=== PATIENT | male | born 1935 | race Caucasian/White ===

== ENCOUNTER 2016-04-14 21:02 | Inpatient (IN) | payer OTHER ==
[~2016-04-14] VITALS: Ht 177.8 cm; Wt 76.2 kg
[~2016-04-14 21:02] MED LIST: ACET650T8 PO; FERR325T31 PO; HYDR-2666 PO; HYDR-2868 PO; MULT-246 PO; OMEP20TA PO; OXYB5TAB7 PO; SIMV20TA3 PO; TAMS0.4C2 PO
[2016-04-14] MEDS ORDERED: ONDANSETRON PF 4 MG/2 ML VIAL. IV ONE (21:30)
--- NOTE | 2016-04-14 21:47 | ED.ADGEN ---
Adult General Chief Complaint Chief Complaint: WEAKNESS/GENERALIZED HPI HPI Patient is a 80 year old man, history of hypercholesterol, hypertension, who presents the emergency department with complaint of cough, generalized weakness , and subjective fever that began today. [place] nauseous after becoming dizzy at home, no loss of consciousness, laid down on the floor, states he did not fall. Denies any chest pain, states cough is productive of white sputum over the past day or so. Patient also states that he had several episodes of loose stool today denies any diarrhea or bloody stools. Did receive his flu vaccination, denies any urinary complaints, abdominal pain, any any injuries, any similar symptoms previously. He was treated about a week ago with antibiotics for " sinus and cough". Mild rhinorrhea. Noted to be hypoxic in the ED, placed on 2 L nasal cannula, oxygen saturation in the mid 90s. Review of Systems Review of Systems Constitutional: Subjective fever, no chills. Eyes: Denies change in visual acuity. [] HENT: Denies nasal congestion or sore throat. [] Respiratory: Cough productive of white sputum, shortness of breath. No chest pain. Cardiovascular: Denies chest pain or edema. [] GI: Denies abdominal pain, complaining of nausea, vomiting, no diarrhea or bloody stools. : Denies dysuria. [] Musculoskeletal: Denies back pain or joint pain. [] Integument: Denies rash. [] Neurologic: Denies headache, focal weakness or sensory changes. [] Endocrine: Denies polyuria or polydipsia. [] Lymphatic: Denies swollen glands. [] Psychiatric: Denies depression or anxiety. [] Current Medications Current Medications Current Medications Medications (Trade) Dose Ordered Sig/Jef Start Time Stop Time Status Last Admin Dose Admin Ondansetron HCl (Zofran) 4 mg 1X ONCE 04/14/16 21:30 04/14/16 21:31 DC Oseltamivir Phosphate (Tamiflu) 75 mg 1X ONCE 04/15/16 00:00 04/15/16 00:01 Allergies Allergies Allergies Coded Allergies Type Severity Reaction Last Updated Verified iodine Allergy Intermediate 04/14/16 Yes Physical Exam Physical Exam Constitutional: Well developed, well nourished, no acute distress, mildly diaphoretic, skin warm to touch. [] HENT: Normocephalic, atraumatic, bilateral external ears normal, oropharynx moist, no oral exudates, nose normal. [] Eyes: PERRLA, EOMI, conjunctiva normal, no discharge. [] Neck: Normal range of motion, no tenderness, supple, no stridor. [] Cardiovascular:Heart rate regular rhythm, no murmur , S1, S2, no rubs or gallops. No chest wall tenderness or crepitus. [] Lungs & Thorax: Diminished breath sounds at bases bilaterally, nasal cannula in place. Abdomen: Bowel sounds normal, soft, no tenderness, no rebound, rigidity, no guarding, no masses, no pulsatile masses. [] Skin: Warm, dry, no erythema, no rash. [] Back: No tenderness, no CVA tenderness. [] Extremities: No tenderness, no cyanosis, no clubbing, ROM intact, no edema. Negative Homans sign. [] Neurologic: Alert and oriented X 3, normal motor function, normal sensory function, no focal deficits noted. [] Psychologic: Affect normal, judgement normal, mood normal. [] Current Patient Data Lab Values Laboratory Tests Test 04/14/16 21:10 04/14/16 22:05 04/14/16 22:10 04/14/16 22:39 Prothrombin Time 13.7SEC (11.7-14.0) Prothrombin Time INR 1.1 (0.8-1.1) PTT 39SEC (24-38) H White Blood Count 5.1x10^3/uL (4.0-11.0) Red Blood Count 4.52x10^6/uL (4.30-5.70) Hemoglobin 14.6g/dL (13.0-17.5) Hematocrit 42.7% (39.0-53.0) Mean Corpuscular Volume 95fL (79-100) Mean Corpuscular Hemoglobin 32pg (25-35) Mean Corpuscular Hemoglobin Concent 34g/dL (31-37) Red Cell Distribution Width 17.8% (11.5-14.5) H Platelet Count 145x10^3/uL (140-400) Neutrophils (%) (Auto) 87% (31-73) H Lymphocytes (%) (Auto) 6% (24-48) L Monocytes (%) (Auto) 7% (0-9) Eosinophils (%) (Auto) 0% (0-3) Basophils (%) (Auto) 0% (0-3) Neutrophils # (Auto) 4.4x10^3uL (1.8-7.7) Lymphocytes # (Auto) 0.3x10^3/uL (1.0-4.8) L Monocytes # (Auto) 0.3x10^3/uL (0.0-1.1) Eosinophils # (Auto) 0.0x10^3/uL (0.0-0.7) Basophils # (Auto) 0.0x10^3/uL (0.0-0.2) Sodium Level 139mmol/L (136-145) Potassium Level 4.1mmol/L (3.5-5.1) Chloride Level 103mmol/L (98-107) Carbon Dioxide Level 25mmol/L (21-32) Anion Gap 11 (6-14) Blood Urea Nitrogen 12mg/dL (8-26) Creatinine 0.8mg/dL (0.7-1.3) Estimated GFR (Cockcroft-Gault) 92.5 BUN/Creatinine Ratio 15 (6-20) Glucose Level 137mg/dL (70-99) H Lactic Acid Level 1.0mmol/L (0.4-2.0) Calcium Level 8.6mg/dL (8.5-10.1) Total Bilirubin 0.5mg/dL (0.2-1.0) Aspartate Amino Transferase (AST) 21U/L (15-37) Alanine Aminotransferase (ALT) 18U/L (16-63) Alkaline Phosphatase 75U/L (46-116) Troponin I Quantitative < 0.017ng/mL (0.000-0.055) Total Protein 7.8g/dL (6.4-8.2) Albumin 3.6g/dL (3.4-5.0) Albumin/Globulin Ratio 0.9 (1.0-1.7) L Lipase 99U/L (73-393) Ethyl Alcohol Level < 10mg/dL (0-10) Urine Collection Type Unknown Urine Color Yellow Urine Clarity Clear Urine pH 7.0 Urine Specific [place] 1.015 Urine Protein Negativemg/dL (NEG-TRACE) Urine Glucose (UA) Negativemg/dL (NEG) Urine Ketones (Stick) 15mg/dL (NEG) Urine Blood Negative (NEG) Urine Nitrite Negative (NEG) Urine Bilirubin Negative (NEG) Urine Urobilinogen Dipstick 0.2mg/dL (0.2 mg/dL) Urine Leukocyte Esterase Negative (NEG) Urine RBC Occ/HPF (0-2) Urine WBC Occ/HPF (0-4) Urine Squamous Epithelial Cells Few/LPF Urine Bacteria Few/HPF (0-FEW) Urine Opiates Screen Neg (NEG) Urine Methadone Screen Neg (NEG) Urine Barbiturates Neg (NEG) Urine Phencyclidine Screen Neg (NEG) Urine Amphetamine/Methamphetamine Neg (NEG) Urine Benzodiazepines Screen Neg (NEG) Urine Cocaine Screen Neg (NEG) Urine Cannabinoids Screen Neg (NEG) Urine Ethyl Alcohol Neg (NEG) Test 04/14/16 22:51 Influenza Type A Antigen Positive (NEGATIVE) A Influenza Type B Antigen Negative (NEGATIVE) Laboratory Tests 04/14/16 22:05 Laboratory Tests 04/14/16 22:05 EKG EKG EC: Sinus rhythm, heart rate 82 beats minute, left axis deviation, QTC of 409, GA 196, QRS of 88, contour normality is noted in the inferior leads, no ST elevations or depressions, abnormal ECG, does not meet STEMI criteria. Radiology/Procedures Radiology/Procedures Chest x-ray: One view: Patient with atelectasis noted at the bases bilaterally, no discrete infiltrates or effusions identified, no bony or soft tissue abnormalities. As interpreted by me. [] Course & Med Decision Making Course & Med Decision Making Pertinent Labs and Imaging studies reviewed. (See chart for details) Patient with mild hypoxia, mild tachycardia in the ED. Stable on 2 L nasal cannula, does not use oxygen at home. Cough 1 day, fever as stated. No leukocytosis noted, patient was positive for influenza type a, chest x-ray does not reveal any evidence of discrete infiltrates, atelectasis stated noted, no indication for antibiotics based on these findings, patient did receive Tamiflu in the ED. A studies otherwise not significantly concerning, patient also received IV fluids along with antipyretics in the ED. Findings as above discussed with Dr. Chen, on-call for the patient's primary care provider Dr. Farmer, patient accepted to his service as a full admission to the medical telemetry floor with supportive measures as stated, with bridge orders as requested. Patient remained stable, comfortable in the emergency department on 2 L nasal cannula, transfer to the floor without issue. Dragon Disclaimer Dragon Disclaimer This electronic medical record was generated, in whole or in part, using a voice recognition dictation system. Departure Impression: Primary Impression: Influenza A Additional Impression: Hypoxia Disposition: ADMITTED INPATIENT Admitting Physician: Eugene Chen Condition: IMPROVED Problem Qualifiers ANURAG PAUL DO Apr 14, 2016 21:47
[2016-04-14 22:20] LABS: BASO % 0 % (0-3); EOS % 0 % (0-3); HEMATOCRIT 42.7 % (39.0-53.0); HEMOGLOBIN 14.6 g/dL (13.0-17.5); LYMPH # 0.3 x10^3/uL (1.0-4.8); LYMPH % 6 % (24-48); MEAN CORPUSCULAR HEMOGLOBIN 32 pg (25-35); MEAN CORPUSCULAR HGB CONC 34 g/dL (31-37); MEAN CORPUSCULAR VOLUME 95 fL (79-100); MONO % 7 % (0-9); NEUT % 87 % (31-73); PLATELET COUNT 145 x10^3/uL (140-400); RED BLOOD COUNT 4.52 x10^6/uL (4.30-5.70); RED CELL DISTRIBUTION WIDTH 17.8 % (11.5-14.5); WHITE BLOOD COUNT 5.1 x10^3/uL (4.0-11.0)
[2016-04-14 22:38] LABS: INR 1.1 (0.8-1.1); PROTHROMBIN TIME PATIENT 13.7 SEC (11.7-14.0)
[2016-04-14 22:40] LABS: CALCIUM 8.6 mg/dL (8.5-10.1); CREATININE 0.8 mg/dL (0.7-1.3); GFR 92.5; POTASSIUM 4.1 mmol/L (3.5-5.1)
[2016-04-14 22:46] LABS: ALBUMIN 3.6 g/dL (3.4-5.0); ALBUMIN/GLOBULIN RATIO 0.9 (1.0-1.7); TOTAL BILIRUBIN 0.5 mg/dL (0.2-1.0); TOTAL PROTEIN 7.8 g/dL (6.4-8.2)
[2016-04-14 22:49] LABS: BILIRUBIN,URINE NEGATIVE (NEG); GLUCOSE,URINE NEGATIVE (NEG); NITRITE,URINE NEGATIVE (NEG); PROTEIN,URINE NEGATIVE (NEG-TRACE); UROBILINOGEN,URINE 0.2 mg/dL (0.2 mg/dL)
[2016-04-14 22:54] LABS: BARBITURATES NEG (NEG); BENZODIAZEPINES NEG (NEG); CANNABINOIDS NEG (NEG); COCAINE NEG (NEG); METHADONE NEG (NEG); OPIATES NEG (NEG); PHENCYCLIDINE NEG (NEG)
[2016-04-14 22:56] LABS: ETHANOL, URINE NEG (NEG)
[2016-04-14 23:18] LABS: BACTERIA,URINE FEW /HPF (0-FEW); RBC,URINE OCC /HPF (0-2); SQUAMOUS EPITHELIAL CELL,UR FEW /LPF; WBC,URINE OCC /HPF (0-4)
[2016-04-14 23:44] LABS: OBC FLU VALID
[2016-04-15] MEDS ORDERED: OSELTAMIVIR 75 MG CAPSULE PO ONE
[2016-04-15] MEDS ORDERED: ONDANSETRON PF 4 MG/2 ML VIAL. IV PRN (00:15)
[2016-04-15 00:27] LABS: PLT ESTIMATE ADEQUATE (ADEQUATE)
[2016-04-15 00:28] LABS: % BASOS 1 % (0-3)
[2016-04-15] MEDS: IV NORMAL SALINE 1000ML BAG 1,000 ML IV SCH ×3 (01:58→20:13)
--- NOTE | 2016-04-15 03:17 | ACF ---
Admission Forms Criteria GENERAL ADMISSION CRITERIA (Place 'X' for any and all applicable criteria): Admission is indicated for ANY ONE of the following: [ ]I. Hemodynamic instability as indicated by ANY ONE of the following(1)(2) (3)(4)(5): [ ]a) Vital sign abnormality not readily corrected by appropriate treatment within 12 to 24 hours indicated by ANY ONE of the following: [ ]i) Hypotension [ ]ii) Symptomatic Tachycardia unresponsive to treatment (eg , analgesia, fluids, sedation as indicated) [ ]iii) Orthostatic vital sign changes unresponsive to treatment (eg, fluids) [ ]b) Vital sign abnormality that is severe indicated by ANY ONE of the following: [ ]i) Inadequate perfusion indicated by ANY ONE of the following: [ ]1) Lactic acidosis (greater than 2 mmol/L) [ ]2) New abnormal capillary refill (greater than 3 seconds) [ ]3) Other metabolic acidosis (arterial pH less than 7.35) not otherwise explained [ ]4) Reduced urine output [ ]5) Altered mental status [ ]6) Myocardial Ischemia [ ]v) Mean arterial pressure[A] less than 60 mm Hg [ ]vi) Mean arterial pressure[A] less than 70 mm Hg after 30 minutes of appropriate treatment (eg, fluid resuscitation) [ ]vii) IV inotropic or vasopressor medication required to maintain adequate blood pressure or perfusion [ ]viii) Sustained heart rate greater than 120 beats per minute in adult or child 6 years or older[B]] [ ]II. Hypertension requiring inpatient treatment as indicated by ANY ONE of the following(6)(7)(8): [ ]a) SBP greater than 220 mm Hg or DBP greater than 120 mm Hg despite treatment [ ]b) SBP greater than 140 mm Hg or DBP greater than 100 mm Hg with evidence of acute end organ damage as indicated by ANY ONE of the following: [ ]i) Encephalopathy [ ]ii) Acute renal failure as indicated by new onset of ANY ONE of the following(9)(10)(11)(12)(13): [ ]1) A 3-fold rise in serum creatinine from baseline [ ]2) Serum creatinine greater than 4 mg/dL ( 354 micromoles/L) with acute rise greater than 0.5 mg/dL (44.2 micromoles/L) [ ]3) Reduction of more than 75% in estimated glomerular filtration rate from baseline [ ]4) Estimated glomerular filtration rate less than 35 mL/min/1.73m2 (0.59 mL/sec/1.73m2) in child up to 18 years of age [ ]5) Cessation of urine output indicated by ALL of the following: [ ]A. Adequate volume status [ ]B. Inadequate urine output as indicated by ANY ONE of the following: [ ]a. Urine output less than 0.3 mL/kg/hr for 24 hours [ ]b. Anuria (urine output less than 0.1 mL/kg/hr) for 12 hours [ ]iii) Aortic dissection [ ]iv) Myocardial ischemia [ ]v) Left ventricular heart failure [ ]vi) Retinal hemorrhage [ ]vii) Other significant finding [ ]c) Hypertension in child requiring inpatient treatment as indicated by ALL of the following(14)(15)(16): [ ]i) Outpatient treatment not effective, not available, or not appropriate [ ]ii) SBP or DBP greater than 95th percentile for age [ ]iii) Evidence of acute end organ damage as indicated by ANY ONE of the following: [ ]1) Altered mental status [ ]2) Acute renal failure as indicated by new onset of ANY ONE of the following(9)(10)(11)(12)(13): [ ]A. A 3-fold rise in serum creatinine from baseline [ ]B. Serum creatinine greater than 4 mg/dL (354 micromoles/L) with acute rise greater than 0.5 mg/dL (44.2 micromoles/L) [ ]C. Reduction of more than 75% in estimated glomerular filtration rate from baseline [ ]D. Estimated glomerular filtration rate less than 35 mL/min/1.73m2 (0.59 mL/sec/1.73m2)in child up to 18 years of age [ ]E. Cessation of urine output indicated by ALL of the following: [ ]a. Adequate volume status [ ]b. Inadequate urine output as indicated by ANY ONE of the following: [ ]1) Urine output less than 0.3 mL/kg/hr for 24 hours [ ]2) Anuria (urine output less than 0.1 mL/kg/hr) for 12 hours [ ]3) Severe headache [ ]4) Visual disturbance [ ]5) Retinal hemorrhage [ ]6) Other significant finding [ ]III. Acute cardiac or peripheral ischemia as indicated by ANY ONE of the following: [ ]a) Acute coronary syndrome(17)(18) [ ]b) Acute peripheral ischemia (eg, pulseless, cool, mottled, or cyanotic extremity)(19) [ ]IV. Cardiac arrhythmias or findings of immediate concern indicated by ANY ONE of the following(20)(21): [ ]a) Heart rhythms that are inherently dangerous or unstable indicated by ANY ONE of the following(22)(23)(24): [ ]i) Resuscitated ventricular fibrillation or cardiac arrest [ ]ii) Ventricular escape rhythm [ ]iii) Sustained ventricular tachycardia (30 seconds or more of ventricular rhythm at greater than 100 beats per minute) [ ]iv) Nonsustained ventricular tachycardia and ANY ONE of the following: [ ]1) Suspected cardiac ischemia as cause or consequence of ventricular tachycardia [ ]2) In setting of acute myocarditis [ ]b) Unstable cardiac conduction defects indicated by ANY ONE of the following(24)(25)(26): [ ]i) Type II second-degree atrioventricular block [ ]ii) Third-degree atrioventricular block [ ]iii) New-onset left bundle branch block with suspected myocardial ischemia [ ]c) Any heart rhythm and ANY ONE of the following(22)(23)(27)(28)( 29): [ ] i) Continuous long-term ECG monitoring needed (eg, initiation of drug requiring monitoring for more than 24 hours) [ ] ii) Patient has automatic implanted cardioverter defibrillator that is repeatedly firing, malfunctioning, or in need of immediate adjustment of settings beyond the scope of ambulatory or observation care. [ ]d) Heart rhythms of concern due to ANY ONE of the following: [ ]i) Hypotension [ ]ii) Respiratory distress [ ]iii) Association with other significant symptoms (eg, bradycardia with syncope or ongoing dizziness, supraventricular tachycardia with chest pain) (27)(28) (30) [ ] V. Severe heart failure as indicated by ANY ONE of the following ( 31)(32): [ ]a) Respiratory distress [ ]b) Hypotension [ ]c) Anasarca (refractory to outpatient therapy) [ ]d) Cardiac arrhythmias of immediate concern [ ]e) Myocardial ischemia [X]. Respiratory abnormalities, including ANY ONE of the following(33)(34) (35)(36): [ ]a) Respiratory rate greater than 30 breaths per minute unresponsive to treatment [A] [ ]b) New saturation of arterial oxygen less than 90% [ ]c) New partial pressure of carbon dioxide greater than 44 mm Hg ( 5.9 kPa) [X]d) Supplemental oxygen or respiratory treatments needed that are new or not performable at other levels of care [ ]e) New-onset cyanosis [ ]f) Inability to protect airway [ ]g) Chronic lung disease with severe deterioration (not responsive to emergency and observation care treatment as appropriate) as indicated by ANY ONE of the following(34)(36 ): [ ]i) SaO2 5% below baseline in patient with chronic hypoxemia [ ]ii) New requirement for supplemental oxygen to keep SaO2 at baseline or acceptable level [ ]iii) Required supplemental oxygen performable only in acute inpatient setting [ ]iv) Severe airflow or ventilation abnormalities [ ]v) Previously mobile patient unable to walk between rooms [ ]vi Inability to eat or sleep due to dyspnea [ ]vii) Rapid rate of exacerbation onset [ ]viii) Altered mental status ]VII. Severe airflow or ventilation abnormalities (not responsive to emergency and observation care treatment as appropriate) as indicated by ANY ONE of the following(33)(34)(35)(37): [ ]a) PCO2 greater than 42 mm Hg (5.6 kPa) and pH less than 7.35 (new ) [ ]b) Documented PCO2 increased more than 5 mm Hg (0.7 kPa) from disease baseline [ ]c) Airflow measurements [B] less than 60% of previous best or predicted (eg, peak expiratory flow rate less than 300 L/minute) despite intensive emergent treatment [C] [ ]d) Required respiratory treatments that are performable only in acute inpatient setting [ ]VIII. Impending or actual respiratory arrest ( Also use Respiratory Failure GRG for severe respiratory disease and long-term mechanical ventilation patients) [ ]IX. Neurologic abnormalities, including ANY ONE of the following: [ ]a) New findings that suggest ANY ONE of the following: [ ]i) VOICE PROFESSOR infection(38) [ ]ii) Cerebral bleeding, ischemia, or vasospasm(39)(40) [ ]iii) Increased intracranial pressure, hydrocephalus, or cerebral edema(41)(42)(43) [ ]iv) Spinal cord injury(44) [ ]b) Uncontrolled seizures(45) [ ]c) New-onset coma (eg, Olga coma scale score less than 9) or unexplained abnormal mental status (eg, Olga coma scale score less than 14) [D](41)(46)(47) [ ]X. New-onset severe neurologic findings requiring inpatient care; examples include(42)(48)(49): [ ]a) Papilledema [ ]b) Cerebral edema [ ]c) Mass effect on CT scan [ ]XI. Suspected acute intra-abdominal process with peritoneal signs, abdominal mass, or similar findings (50)(51)(52) [ ]XII. Severe physiologic disorder remaining after emergency or observation level care (as appropriate) as indicated by ANY ONE of the following (53): [ ]a) Significant dehydration [ ]b) Diabetic ketoacidosis [ ]c) Hyperglycemic hyperosmolar state (eg, osmolality greater than 320 mOsm/kg (mmol/kg) [ ]d) Hypoglycemia [ ]e) Other (new) acid-base disorder with pH less than 7.35 or greater than 7.5(54) [ ]f) Thyroid storm (55) [ ]g) Myxedema coma (55) [ ]XIII. Abdominal abnormalities with ANY ONE of the following(56)(57): [ ]a) Absent bowel sounds with complete ileus [ ]b) Signs of intestinal obstruction or peritonitis [E] [ ]c) Nausea and vomiting that cannot be controlled with outpatient or observation care [ ]XIV. Acute renal failure as indicated by new onset of ANY ONE of the following(9)(10)(11)(12)(13): [ ]a) A 3-fold rise in serum creatinine from baseline [ ]b) Serum creatinine greater than 4 mg/dL (354 micromoles/L) with acute rise greater than 0.5 mg/dL (44.2 micromoles/L) [ ]c) Reduction of more than 75% in estimated glomerular filtration rate from baseline [ ]d) Estimated glomerular filtration rate less than 35 mL/min/ 1.73m2 (0.59 mL/sec/1.73m2) in child up to 18 years of age [ ]e) Cessation of urine output indicated by ALL of the following: [ ]i) Adequate volume status [ ]ii) Inadequate urine output as indicated by ANY ONE of the following: [ ]1) Urine output less than 0.3 mL/kg/hr for 24 hours [ ]2) Anuria (urine output less than 0.1 mL/kg/hr) for 12 hours [ ]XV. Significant uremic complications as indicated by ANY ONE of the following(58)(59)(60): [ ]a) Outpatient therapy is ineffective or not feasible for ANY ONE of the following: [ ]i) Severe heart failure [ ]ii) Severehypertension [ ]iii) Pleural effusion [ ]iv) Pericarditis or pericardial effusion [ ]b) Cardiac arrhythmias of immediate concern [ ]c) Intractable nausea or vomiting [ ]d) Recurrent seizures [ ]e) Encephalopathy [ ]f) Bleeding abnormalities (eg, platelet dysfunction) with active (eg, gastrointestinal) bleeding [ ]g) Dialysis indicated before long-term access or ambulatory arrangements can be made [ ]h) Significant metabolic or electrolyte abnormalities (eg, severe acidosis or hyperkalemia) [ ]XVI. High fever or other high-risk infection situation as indicated by ANY ONE of the following(61)(62)(63)(64): [ ]a) Outpatient and observation care antimicrobial treatment unavailable, not effective, or not appropriate [ ]b) Documented bacteremia [ ]c) Temperature greater than 40.5 degrees C (104.9 degrees F) ( oral) [ ]d) Temperature greater than 39.5 degrees C (103.1 degrees F) ( oral) or less than 36 degrees C (96.8 degrees F) (rectal) that does not respond to e treatment and observation care [ ] XVII. Temperature less than 95 degrees F (35 degrees C)(rectal)(65) [ ] XVIII. Severe nutritional abnormalities as indicated by ALL of the following (66)(67): [ ]a) Inability to tolerate or establish sufficient oral or other enteral nutrition in outpatient setting [ ]b) Parenteral nutrition regimen need that must be implemented on inpatient basis [ ] XIX. Severe electrolyte abnormalities indicated by ALL of the following(68) (69)(70): [ ]a) Electrolytes and associated findings are not as expected for patient baseline or acceptable treatment effects. [ ]b) Severe abnormalities indicated by ANY ONE of the following: [ ]i) Sodium less than 130 mEq/L (mmol/L) (new) [ ]ii)Sodium less than 135 mEq/L (mmol/L) with ANY ONE of the following: [ ]1) Uncorrectable (to near normal or chronic baseline) after trial of outpatient and emergency treatment [ ]2) Altered mental status [ ]3) Seizures [ ]4) Severe medical etiology requiring inpatient management (eg, heart failure, hypovolemia) [ ]iii) Sodium greater than 155 mEq/L (mmol/L) [ ]iv) Sodium greater than 150 mEq/L (mmol/L) with ANY ONE of the following: [ ]1) Uncorrectable (to near normal or chronic baseline) with outpatient and emergency treatment [ ]2) Altered mental status [ ]3) Seizures [ ]4) Severe medical etiology (eg, hypovolemia, diabetes insipidus) [ ]v) Potassium less than 2.5 mEq/L (mmol/L) despite outpatient and emergency treatment [ ]vi) Potassium less than 3 mEq/L (mmol/L) with ANY ONE of the following: [ ]1) Weakness [ ]2) Cardiac abnormality (eg, arrhythmia, conduction disturbance) [ ]3) Cardiac ischemia [ ]4) Ileus [ ]5) Ongoing medical cause requiring inpatient management (eg, acute renal wasting or SIADH) [ ]6) Other severe symptoms [ ]vii) Potassium greater than 6.5 mEq/L (mmol/L) [ ]viii) Potassium greater than 5 mEq/L (mmol/L) with ANY ONE of the following: [ ]1) Uncorrectable (to near normal or chronic baseline) with outpatient and emergency treatment [ ]2) Severe ECG findings [F] [ ]3) Acute worsening of renal failure (creatinine greater than 2.5 mg/dL (221 micromoles/L) or significant elevation for age and size) [ ]4) Severe weakness [ ]5) Severe medical etiology (eg, hemolysis, infection, drug overdose) [ ]ix) Calcium less than 7 mg/dL (1.75 mmol/L) despite outpatient and emergency treatment (72) [ ]x) Calcium less than 8 mg/dL (2 mmol/L) with significant symptoms or findings; examples include(72): [ ]1) Altered mental status [ ]2) Muscle spasms [ ]3) Seizures [ ]4) Breathing difficulty [ ]5) Cardiac abnormality (eg, arrhythmia or conduction disturbance) [ ]xi) Calcium greater than 14 mg/dL (3.5 mmol/L)(72) [ ]xii) Calcium greater than 12 mg/dL (3 mmol/L) with ANY ONE of the following(72): [ ]1) Uncorrectable (to near normal or chronic baseline) with outpatient and emergency treatment [ ]2) Significant dehydration or hypovolemia as indicated by ALL of the following(70)(73)(74): [ ]A. Not resolved with initial treatments [ ]B. Clinically significant dehydration as indicated by ANY ONE of the following: [ ]a. Vomiting refractory to outpatient treatment (ie, precluding oral rehydration) [ ]b. Inability to drink [ ]c. Hypernatremia or other electrolyte abnormality unable to be corrected with outpatient and emergency treatment [ ]d. Failure to remain hydrated with outpatient therapy [ ]e. Reduced urine output [ ]f. Hypotension [ ]g. Serious cause for dehydration requiring acute hospitalization (eg, bowel obstruction, increased intracranial pressure, infectious cause) [ ]h. Child with ANY ONE of the following(75): [ ]1) Severe abdominal tenderness [ ]2) Adequate care not available at home [ ]3) Severe dehydration ( greater than 9% loss of body weight) [ ]4) Significant symptoms or findings; examples include: [ ]A. Altered mental status [ ]B. Cardiac abnormality (eg, arrhythmia, conduction disturbance) [ ]C. Malignant etiology requiring inpatient treatment [ ]xiii) Phosphorus less than 1 mg/dL (0.32 mmol/L) [ ]xiv) Phosphorus less than 1.5 mg/dL (0.48 mmol/L) with ANY ONE of the following: [ ]1) Patient unresponsive to outpatient and emergency treatment [ ]2) Significant symptoms or findings; examples include: [ ]A. Weakness [ ]B. Altered mental status [ ]C. Breathing difficulty [ ]D. Seizures [ ]E. Rhabdomyolysis [ ]xv) Phosphorus greater than 10 mg/dL (3.2 mmol/L) [ ]xvi) Phosphorus greater than 4.5 mg/dL (1.45 mmol/L) (new) with ANY ONE of the following: [ ]1) Severe medical etiology (eg, crush injury, acute renal failure) [ ]2) Associated hypocalcemia with significant findings; examples include: [ ]A. Neurologic symptoms [ ]B. Altered mental status [ ]C. Muscle spasms [ ]D. Seizures [ ]E. Breathing difficulty [ ]F. Cardiac abnormality (eg, arrhythmia, conduction disturbance) [ ]xvii) Magnesium less than 1 mg/dL (0.41 mmol/L) [ ]xviii) Magnesium less than 1.5 mg/dL (0.62 mmol/L) with ANY ONE of the following: [ ]1) Patient unresponsive to outpatient and emergency treatment [ ]2) Associated hypocalcemia with significant findings; examples include: [ ]A. Altered mental status [ ]B. Muscle spasms [ ]C. Seizures [ ]D. Breathing difficulty [ ]E. Cardiac abnormality (eg, arrhythmia , conduction disturbance) [ ]3) Associated hypokalemia (potassium less than 3 mEq/L (mmol/L)) with risk of arrhythmia [ ]xix) Magnesium greater than 4 mEq/L (2 mmol/L) [ ]xx) Magnesium greater than 2.5 mEq/L (1.25 mmol/L) with significant symptoms or findings; examples include: [ ]1) Weakness [ ]2) Altered mental status [ ]3) Cardiac abnormality (eg, arrhythmia, conduction disturbance) [ ]4) Breathing difficulty [ ]5) Severe medical etiology (eg, renal failure, hypovolemia) [ ]xxi) Uric acid greater than 20 mg/dL (1190 micromoles/L)(76) [ ]xxii) Uric acid greater than 8 mg/dL (476 micromoles/L) with significant symptoms or findings of tumor lysis syndrome; examples include(76): [ ]1) Creatinine greater than 1.5 times upper limit of normal [ ]2) Cardiac abnormality (eg, arrhythmia, conduction disturbance) [ ]3) Seizure [ ]XX. Acute blood loss causing significant abnormality as indicated by ANY ONE of the following(77)(78): [ ]a) Hemoglobin less than 10 g/dL (100 g/L) (not baseline) [ ]b) Hematocrit less than 30% (0.30) (not baseline) [ ]c) Repeat hematocrit decreased more than 2% (0.02) [ ]d) Uncontrolled bleeding [ ]XXI. Severe anemia indicated by ANY ONE of the following(78)(79): [ ]a) Altered mental status [ ]b) Chest pain [ ]c) Exertional dyspnea [ ]d) Syncope [ ]e) Other findings suggesting inadequate perfusion [ ]f) Treatment with transfusion or volume replacement is ineffective at resolving ANY ONE of the following [G]: [ ]i) Tachycardia for age [ ]ii) Orthostatic vital sign changes as indicated by ANY ONE of the following(80): [ ]1) Fall in SBP of 20 mm Hg or more 1 to 3 minutes after patient sits or stands from recumbent position [ ]2) Fall in DBP of 10 mm Hg or more 1 to 3 minutes after patient sits or stands from recumbent position [ ]XXII. High-risk low platelet count as indicated by ANY ONE of the following( 81)(82): [ ]a) Severe or life-threatening bleeding (eg, intracranial, major gastrointestinal, or extensive mucosal bleeding), with any reduced platelet count [ ]b) Platelet count less than 20,000/mm3 (20 x109/L) with any active bleeding [ ]c) Platelet count less than 10,000/mm3 (10 x109/L) with minor purpura or petechiae [ ]d) Platelet count less than 5000/mm3 (5 x109/L) [ ]e) Low platelet count with hemolytic anemia [ ]XXIII. Disseminated intravascular coagulation(77)(83) [ ]XXIV. Severe adverse drug or systemic toxin reaction requiring inpatient treatment; examples include(84)(85): [ ]a) Serotonin syndrome(86) [ ]b) Neuroleptic malignant syndrome(86) [ ]c) Cholinergic syndrome with severe symptoms (eg, bronchorrhea, weakness, mental status changes, seizures) [ ]d) Sympathetic syndrome with severe symptoms (eg, seizures, mental status changes, cardiac dysrhythmias) [ ]e) Anticholinergic syndrome [ ]XXV. Severe pain requiring acute inpatient management as indicated by ALL of the following (87)(88)(89): [ ]a) Continuous or frequent (eg, every 2 to 4 hours) parenteral analgesics required [H] [ ]b) Rapid improvement expected from treatment or acute intervention (eg, surgery, anesthesia procedure) [ ]XXVI.Severe behavioral health issues judged unmanageable at a lower level of care (eg, residential) in a patient who is ANY ONE of the following(91) [ ]a) Acutely suicidal [ ]b) A danger to self (eg, self-mutilating or suicidal behavior) [ ]c) A danger to others (eg, assaultive or homicidal behavior) [ ]d) Incapacitated because of grave disability (eg, inability to provide for self at lower level of care) (92) [X ]XXVII. Inpatient monitoring needed; examples include(1)(3)(87)(93)(94)(95)( 96): [ ]a) Vital signs, neurologic signs, or vascular checks more frequently than every 4 hours [X ]b) Cardiac or respiratory monitoring beyond the scope (eg, over 24 hours) of observation care [ ]c) Pulmonary artery catheter monitoring [ ]d) Suspected compartment syndrome(97) (98) [ ]e) Cerebral bleeding, hydrocephalus, or vasospasm monitoring [ ]f) Increased intracranial pressure or cerebral edema monitoring [ ]g) monitoring [ ]XXVIII. Treatment requiring inpatient care; examples include: [ ]a) IV fluid to replace significant ongoing losses (greater than 3 L/m2 per day)(53) [ ]b) High concentration oxygen (greater than 40%)(33)(99)(100) [ ]c) Frequent respiratory therapy (more frequently than every 4 hours) to maintain airflow rates greater than 60% of baseline(33)(99)(100) [ ]d) Epidural analgesia(87) [ ]e) IV anticoagulation, vasoactive, or antiarrhythmic medication(19 )(23) [ ]f) Acute thrombolytics (generally require 24 hours of observation )(101)(102) [ ]XXIX. Emergency procedures needed; examples include: [ ]a) Emergency inpatient surgery [ ]b) Temporary pacemaker placement(103) [ ]c) Chest tube placement with active evacuation (eg, suction, drainage)(104) [ ]d) Emergent cardioversion(105) [ ]e) Emergent cardiac or vascular procedures (eg, cardiac catheterization, angioplasty) (17)(18) [ ]f) Emergent dialysis access placement and institution(10)(106) [ ]g) Emergent pericardiocentesis(107) [ ]h) Emergent plasmapheresis or leukapheresis(83) [ ]i) Emergent tracheostomy The original [employer] content created by [employer] has been revised. The portions of the content which have been revised are identified through the use of italic text or in bold, and [employer] has neither reviewed nor approved the modified material. All other unmodified content is copyright [employer]. Please see references footnoted in the original [employer] edition 2016 Admission Criteria Met?: Yes CRISTAL LEONG Apr 15, 2016 03:17 NOEMY GRANADO Apr 15, 2016 14:42
[2016-04-15 03:35] VITALS: BP 157/84
[2016-04-15] MEDS: ACETAMINOPHEN 325 MG TABLET. PO PRN ×2 (04:48→20:09)
[2016-04-15] MEDS: IPRATRPIUM/ALBUTEROL 0.5/2.5MG 3 ML NEBU. NEB SCH ×4 (06:52→20:38)
[2016-04-15 07:00] VITALS: BP 136/73
[2016-04-15] MEDS: OSELTAMIVIR 75 MG CAPSULE PO SCH ×2 (08:12→20:13)
--- NOTE | 2016-04-15 08:53 | EKG ---
[facility] [address] [place] [address] Test Date: 2016-04-14 Test Time: 21:31:00 Pat Name: ADRIAN ROACH Department: Room: Gender: M Supervisor Files: PERCY : 1935 Requested By: ANURAG PAUL Order Number: [id number] Reading MD: Measurements Intervals [place] Rate: 82 P: -90 CA: 196 QRS: -47 QRSD: 88 T: 20 QT: 348 QTc: 409 Interpretive Statements SINUS RHYTHM ABNORMAL LEFT AXIS DEVIATION LOW LIMB LEAD VOLTAGE QRS(T) CONTOUR ABNORMALITY CONSIDER INFERIOR MYOCARDIAL DAMAGE ABNORMAL ECG RI6.01 No previous ECG available for comparison
--- NOTE | 2016-04-15 10:07 | RAD ---
AP portable chest radiograph 04/14/2016 Clinical History: Cough and shortness of breath since earlier in the day. An AP portable erect digital radiograph of the chest was obtained. Comparison study is dated 12/18/2009. The cardiac silhouette is borderline enlarged. The thoracic aorta is tortuous. Atherosclerotic calcification of the thoracic aorta is seen. Areas of atelectasis and/or infiltrate are seen involving both lower lobes, left great than right. No pneumothorax or pleural effusion is seen. Degenerative changes are seen involving the thoracic spine and both shoulders. A Small threaded screw overlies the proximal left humerus, unchanged. Impression: Areas of atelectasis and or infiltrate are seen involving both lower lobes, left greater the right.
[2016-04-15 11:00] VITALS: BP 149/79
[2016-04-15 15:00] VITALS: BP 141/71
--- NOTE | 2016-04-15 18:55 | PDOC ---
GENERAL General: see dictated H&P. Problems: VITAL SIGNS Vital Signs: Vital Signs Date Time Temp Pulse Resp B/P Pulse Ox O2 Delivery O2 Flow Rate FiO2 04/15/16 15:00 100.9 80 18 141/71 96 Room Air 100.9 04/15/16 14:46 2.0 I & O I & O Intake and Output 04/15/16 07:00 Intake Total 300 ml Output Total 300 ml Balance 0 ml Intake IV Total 300 ml Output Urine Total 300 ml ALLERGIES Allergies: Allergies Coded Allergies Type Severity Reaction Last Updated Verified iodine Allergy Intermediate 04/14/16 Yes MEDS Medications: Current Medications Medications (Trade) Dose Ordered Sig/Jef Start Time Stop Time Status Last Admin Dose Admin Acetaminophen (Tylenol) 650 mg PRN Q4HRS PRN 04/15/16 00:15 04/16/16 00:14 04/15/16 04:48 650 MG Albuterol/ Ipratropium (Duoneb) 3 ml RTQID 04/15/16 08:00 04/16/16 07:59 04/15/16 14:46 3 ML Ondansetron HCl (Zofran) 4 mg 1X ONCE 04/14/16 21:30 04/14/16 21:31 DC Ondansetron HCl 4 mg 4 mg PRN Q8HRS PRN 04/15/16 00:15 04/16/16 00:14 Oseltamivir Phosphate (Tamiflu) 75 mg 1X ONCE 04/15/16 00:00 04/15/16 00:01 DC 04/15/16 02:01 75 MG Sodium Chloride (Iv Sodium Chloride 0.9% 1000ml Bag) 1,000 ml @ 100 mls/hr Q10H 04/15/16 00:30 04/16/16 00:29 04/15/16 08:13 100 MLS/HR LAB Lab: Laboratory Tests Test 04/14/16 21:10 04/14/16 22:05 04/14/16 22:10 04/14/16 22:39 Prothrombin Time 13.7SEC (11.7-14.0) Prothromb Time International Ratio 1.1 (0.8-1.1) Activated Partial Thromboplast Time 39SEC (24-38) White Blood Count 5.1x10^3/uL (4.0-11.0) Red Blood Count 4.52x10^6/uL (4.30-5.70) Hemoglobin 14.6g/dL (13.0-17.5) Hematocrit 42.7% (39.0-53.0) Mean Corpuscular Volume 95fL (79-100) Mean Corpuscular Hemoglobin 32pg (25-35) Mean Corpuscular Hemoglobin Concent 34g/dL (31-37) Red Cell Distribution Width 17.8% (11.5-14.5) Platelet Count 145x10^3/uL (140-400) Neutrophils (%) (Auto) 87% (31-73) Lymphocytes (%) (Auto) 6% (24-48) Monocytes (%) (Auto) 7% (0-9) Eosinophils (%) (Auto) 0% (0-3) Basophils (%) (Auto) 0% (0-3) Neutrophils # (Auto) 4.4x10^3uL (1.8-7.7) Lymphocytes # (Auto) 0.3x10^3/uL (1.0-4.8) Monocytes # (Auto) 0.3x10^3/uL (0.0-1.1) Eosinophils # (Auto) 0.0x10^3/uL (0.0-0.7) Basophils # (Auto) 0.0x10^3/uL (0.0-0.2) Segmented Neutrophils % 76% (35-66) Band Neutrophils % 13% (0-9) Lymphocytes % 4% (24-48) Monocytes % 6% (0-10) Basophils % 1% (0-3) Promyelocytes % % (0-0) Platelet Estimate Adequate (ADEQUATE) Sodium Level 139mmol/L (136-145) Potassium Level 4.1mmol/L (3.5-5.1) Chloride Level 103mmol/L (98-107) Carbon Dioxide Level 25mmol/L (21-32) Anion Gap 11 (6-14) Blood Urea Nitrogen 12mg/dL (8-26) Creatinine 0.8mg/dL (0.7-1.3) Estimated GFR (Cockcroft-Gault) 92.5 BUN/Creatinine Ratio 15 (6-20) Glucose Level 137mg/dL (70-99) Lactic Acid Level 1.0mmol/L (0.4-2.0) Calcium Level 8.6mg/dL (8.5-10.1) Total Bilirubin 0.5mg/dL (0.2-1.0) Aspartate Amino Transf (AST/SGOT) 21U/L (15-37) Alanine Aminotransferase (ALT/SGPT) 18U/L (16-63) Alkaline Phosphatase 75U/L (46-116) Troponin I Quantitative < 0.017ng/mL (0.000-0.055) Total Protein 7.8g/dL (6.4-8.2) Albumin 3.6g/dL (3.4-5.0) Albumin/Globulin Ratio 0.9 (1.0-1.7) Lipase 99U/L (73-393) Ethyl Alcohol Level < 10mg/dL (0-10) Urine Collection Type Unknown Urine Color Yellow Urine Clarity Clear Urine pH 7.0 Urine Specific [place] 1.015 Urine Protein Negativemg/dL (NEG-TRACE) Urine Glucose (UA) Negativemg/dL (NEG) Urine Ketones (Stick) 15mg/dL (NEG) Urine Blood Negative (NEG) Urine Nitrite Negative (NEG) Urine Bilirubin Negative (NEG) Urine Urobilinogen Dipstick 0.2mg/dL (0.2 mg/dL) Urine Leukocyte Esterase Negative (NEG) Urine RBC Occ/HPF (0-2) Urine WBC Occ/HPF (0-4) Urine Squamous Epithelial Cells Few/LPF Urine Bacteria Few/HPF (0-FEW) Urine Opiates Screen Neg (NEG) Urine Methadone Screen Neg (NEG) Urine Barbiturates Neg (NEG) Urine Phencyclidine Screen Neg (NEG) Urine Amphetamine/Methamphetamine Neg (NEG) Urine Benzodiazepines Screen Neg (NEG) Urine Cocaine Screen Neg (NEG) Urine Cannabinoids Screen Neg (NEG) Urine Ethyl Alcohol Neg (NEG) Test 04/14/16 22:51 Influenza Type A Antigen Positive (NEGATIVE) Influenza Type B Antigen Negative (NEGATIVE) WATSON JONES MD Apr 15, 2016 18:55
[2016-04-15 19:00] VITALS: BP 154/73
[2016-04-15] MEDS: HYDROCODONE/APAP 5/325MG TABLET. PO SCH (21:00)
[2016-04-15] MEDS: ACETAMINOPHEN 650 MG TABLET.ER PO SCH (21:00)
[2016-04-15] MEDS: CALCIUM CARBONATE 500 MG TAB.CHEW PO PRN (21:01)
[2016-04-15] MEDS: FAMOTIDINE 20 MG TABLET. PO SCH (21:01)
[2016-04-15] MEDS: SIMVASTATIN 20 MG TABLET PO SCH (21:01)
--- NOTE | 2016-04-15 21:27 | HP ---
ADMIT DATE: 04/14/2016 CHIEF COMPLAINT AND HISTORY OF PRESENT ILLNESS: This 80-year-old white male, patient of Dr. Bola Farmer, admitted through the Emergency Room with weakness, cough and fever, found to be hypoxic and positive for influenza A and admitted for the same with oxygen therapy, Tamiflu, breathing treatments, etc. The patient was sick for at least a couple of days leading up to this. On the day of admission, he went into bathroom and became ____ down on the floor. He was unable to get back up. PAST MEDICAL HISTORY: Remarkable for hypertension, GERD, hyperlipidemia, BPH. MEDICATIONS: Brought with the patient, listed on the computer and have been addressed. ALLERGIES: Include iodine. SOCIAL HISTORY: Noncontributory. FAMILY HISTORY: Noncontributory. REVIEW OF SYSTEMS: As mentioned above. PHYSICAL EXAMINATION: GENERAL: He is a well-developed, well-nourished, pleasant white male in no acute distress by the time of my examination at rest. VITAL SIGNS: Stable. He is currently afebrile. HEAD, EYES, EARS, NOSE AND THROAT: Unremarkable. NECK: Supple without adenopathy or thyromegaly. CHEST: Reveals decreased breath sounds bilaterally at the bases. HEART: Regular rate and rhythm without S3, S4 or murmur. ABDOMEN: Soft, nontender without hepatosplenomegaly or mass. EXTREMITIES: Without cyanosis, clubbing or edema. NEUROLOGIC: He is intact. The patient currently has good oxygen saturations with 2 liters per nasal cannula O2. LABORATORY DATA: His white count is 5100 on admission with a left shift. Rest of his labs unremarkable with blood sugar of 137 and admission chest x-ray shows some area of atelectasis or infiltrate in both lower lobes, left greater than right. IMPRESSION: Influenza with weakness and hypoxemia as described above. PLAN: The patient has been admitted. Tamiflu will be continued. Home medications will be restarted. The patient will be monitored, managed and treated appropriately. WATSON JONES MD DR: SOLANGE/hoang JOB#: [id number] / [id number]
[2016-04-15 23:00] VITALS: BP 142/80
[2016-04-16] MEDS: ONDANSETRON ODT 4 MG TAB.RAPDIS PO PRN ×2 (01:14→22:45)
[2016-04-16 03:00] VITALS: BP 157/82
[2016-04-16 04:57] LABS: BASO % 0 % (0-3); EOS % 0 % (0-3); HEMATOCRIT 41.7 % (39.0-53.0); HEMOGLOBIN 14.2 g/dL (13.0-17.5); LYMPH # 0.8 x10^3/uL (1.0-4.8); LYMPH % 18 % (24-48); MEAN CORPUSCULAR HEMOGLOBIN 32 pg (25-35); MEAN CORPUSCULAR HGB CONC 34 g/dL (31-37); MEAN CORPUSCULAR VOLUME 94 fL (79-100); MONO % 14 % (0-9); NEUT % 69 % (31-73); PLATELET COUNT 138 x10^3/uL (140-400); RED BLOOD COUNT 4.45 x10^6/uL (4.30-5.70); WHITE BLOOD COUNT 4.4 x10^3/uL (4.0-11.0)
[2016-04-16 05:45] LABS: CALCIUM 8.6 mg/dL (8.5-10.1); CREATININE 0.7 mg/dL (0.7-1.3); POTASSIUM 3.8 mmol/L (3.5-5.1)
[2016-04-16 07:00] VITALS: BP 138/82
[2016-04-16] MEDS: IPRATRPIUM/ALBUTEROL 0.5/2.5MG 3 ML NEBU. NEB SCH (07:21)
[2016-04-16] MEDS: PANTOPRAZOLE 40 MG TABLET. PO SCH (07:55)
[2016-04-16] MEDS: FAMOTIDINE 20 MG TABLET. PO SCH ×2 (08:21→20:12)
[2016-04-16] MEDS: ACETAMINOPHEN 650 MG TABLET.ER PO SCH ×2 (08:21→20:11)
[2016-04-16] MEDS: MULTIVITAMIN with MINERAL TABLET. PO SCH (08:21)
[2016-04-16] MEDS: FERROUS SULFATE 325 MG TABLET PO SCH (08:22)
[2016-04-16] MEDS: OXYBUTYNIN CHLORIDE 5 MG TABLET PO SCH (08:22)
[2016-04-16] MEDS: OSELTAMIVIR 75 MG CAPSULE PO SCH ×2 (08:22→20:11)
[2016-04-16] MEDS: TAMSULOSIN 0.4 MG CAP.ER.24H. PO SCH (08:22)
[2016-04-16] MEDS: HYDROCODONE/APAP 5/325MG TABLET. PO SCH ×2 (08:23→20:15)
--- NOTE | 2016-04-16 10:38 | PDOC ---
PROGRESS NOTES Subjective Subjective Pt awake and pleasant in conversation. Continues to c/o productive cough and generalized body aches. Pt states he has a poor appetite, however is eating and drinking some. Objective Objective Pt awake and alert. NAD at rest. VSS with tmax of 100.9. Lungs with loose rhonchi throughout. Resp even and shallow. Heart with RRR. No murmurs. Vital Signs Date Time Temp Pulse Resp B/P Pulse Ox O2 Delivery O2 Flow Rate FiO2 04/16/16 08:30 Nasal Cannula 2.0 04/16/16 07:24 91 04/16/16 07:00 97.9 55 16 138/82 97.9 Intake and Output 04/16/16 07:00 Output Total 2450 ml Balance -2450 ml Output Urine Total 2450 ml Assessment Assessment Problems Medical Problems: (1) Hypoxia Status: Acute (2) Influenza A Status: Acute Plan Plan of Care 1. Influenza A with bibasilar infiltrates -Tamiflu A -Rocephin 1g IV q12 started 04/16 -Zithromax 500mg IV qd started 04/16 -O2 to maintain sats >92% Med hx: Remarkable for hypertension, GERD, hyperlipidemia, BPH. Comment Review of Relevant I have reviewed the following items evaristo (where applicable) has been applied. Labs Laboratory Tests Test 04/14/16 21:10 04/14/16 22:05 04/14/16 22:10 04/14/16 22:39 Prothrombin Time 13.7SEC (11.7-14.0) Prothromb Time International Ratio 1.1 (0.8-1.1) Activated Partial Thromboplast Time 39SEC (24-38) White Blood Count 5.1x10^3/uL (4.0-11.0) Red Blood Count 4.52x10^6/uL (4.30-5.70) Hemoglobin 14.6g/dL (13.0-17.5) Hematocrit 42.7% (39.0-53.0) Mean Corpuscular Volume 95fL (79-100) Mean Corpuscular Hemoglobin 32pg (25-35) Mean Corpuscular Hemoglobin Concent 34g/dL (31-37) Red Cell Distribution Width 17.8% (11.5-14.5) Platelet Count 145x10^3/uL (140-400) Neutrophils (%) (Auto) 87% (31-73) Lymphocytes (%) (Auto) 6% (24-48) Monocytes (%) (Auto) 7% (0-9) Eosinophils (%) (Auto) 0% (0-3) Basophils (%) (Auto) 0% (0-3) Neutrophils # (Auto) 4.4x10^3uL (1.8-7.7) Lymphocytes # (Auto) 0.3x10^3/uL (1.0-4.8) Monocytes # (Auto) 0.3x10^3/uL (0.0-1.1) Eosinophils # (Auto) 0.0x10^3/uL (0.0-0.7) Basophils # (Auto) 0.0x10^3/uL (0.0-0.2) Segmented Neutrophils % 76% (35-66) Band Neutrophils % 13% (0-9) Lymphocytes % 4% (24-48) Monocytes % 6% (0-10) Basophils % 1% (0-3) Promyelocytes % % (0-0) Platelet Estimate Adequate (ADEQUATE) Sodium Level 139mmol/L (136-145) Potassium Level 4.1mmol/L (3.5-5.1) Chloride Level 103mmol/L (98-107) Carbon Dioxide Level 25mmol/L (21-32) Anion Gap 11 (6-14) Blood Urea Nitrogen 12mg/dL (8-26) Creatinine 0.8mg/dL (0.7-1.3) Estimated GFR (Cockcroft-Gault) 92.5 BUN/Creatinine Ratio 15 (6-20) Glucose Level 137mg/dL (70-99) Lactic Acid Level 1.0mmol/L (0.4-2.0) Calcium Level 8.6mg/dL (8.5-10.1) Total Bilirubin 0.5mg/dL (0.2-1.0) Aspartate Amino Transf (AST/SGOT) 21U/L (15-37) Alanine Aminotransferase (ALT/SGPT) 18U/L (16-63) Alkaline Phosphatase 75U/L (46-116) Troponin I Quantitative < 0.017ng/mL (0.000-0.055) Total Protein 7.8g/dL (6.4-8.2) Albumin 3.6g/dL (3.4-5.0) Albumin/Globulin Ratio 0.9 (1.0-1.7) Lipase 99U/L (73-393) Ethyl Alcohol Level < 10mg/dL (0-10) Urine Collection Type Unknown Urine Color Yellow Urine Clarity Clear Urine pH 7.0 Urine Specific [place] 1.015 Urine Protein Negativemg/dL (NEG-TRACE) Urine Glucose (UA) Negativemg/dL (NEG) Urine Ketones (Stick) 15mg/dL (NEG) Urine Blood Negative (NEG) Urine Nitrite Negative (NEG) Urine Bilirubin Negative (NEG) Urine Urobilinogen Dipstick 0.2mg/dL (0.2 mg/dL) Urine Leukocyte Esterase Negative (NEG) Urine RBC Occ/HPF (0-2) Urine WBC Occ/HPF (0-4) Urine Squamous Epithelial Cells Few/LPF Urine Bacteria Few/HPF (0-FEW) Urine Opiates Screen Neg (NEG) Urine Methadone Screen Neg (NEG) Urine Barbiturates Neg (NEG) Urine Phencyclidine Screen Neg (NEG) Urine Amphetamine/Methamphetamine Neg (NEG) Urine Benzodiazepines Screen Neg (NEG) Urine Cocaine Screen Neg (NEG) Urine Cannabinoids Screen Neg (NEG) Urine Ethyl Alcohol Neg (NEG) Test 04/14/16 22:51 04/16/16 03:45 Influenza Type A Antigen Positive (NEGATIVE) Influenza Type B Antigen Negative (NEGATIVE) White Blood Count 4.4x10^3/uL (4.0-11.0) Red Blood Count 4.45x10^6/uL (4.30-5.70) Hemoglobin 14.2g/dL (13.0-17.5) Hematocrit 41.7% (39.0-53.0) Mean Corpuscular Volume 94fL (79-100) Mean Corpuscular Hemoglobin 32pg (25-35) Mean Corpuscular Hemoglobin Concent 34g/dL (31-37) Red Cell Distribution Width 18.0% (11.5-14.5) Platelet Count 138x10^3/uL (140-400) Neutrophils (%) (Auto) 69% (31-73) Lymphocytes (%) (Auto) 18% (24-48) Monocytes (%) (Auto) 14% (0-9) Eosinophils (%) (Auto) 0% (0-3) Basophils (%) (Auto) 0% (0-3) Neutrophils # (Auto) 3.0x10^3uL (1.8-7.7) Lymphocytes # (Auto) 0.8x10^3/uL (1.0-4.8) Monocytes # (Auto) 0.6x10^3/uL (0.0-1.1) Eosinophils # (Auto) 0.0x10^3/uL (0.0-0.7) Basophils # (Auto) 0.0x10^3/uL (0.0-0.2) Sodium Level 137mmol/L (136-145) Potassium Level 3.8mmol/L (3.5-5.1) Chloride Level 106mmol/L (98-107) Carbon Dioxide Level 25mmol/L (21-32) Anion Gap 6 (6-14) Blood Urea Nitrogen 13mg/dL (8-26) Creatinine 0.7mg/dL (0.7-1.3) Estimated GFR (Cockcroft-Gault) 108.0 Glucose Level 103mg/dL (70-99) Calcium Level 8.6mg/dL (8.5-10.1) Laboratory Tests Test 04/16/16 03:45 White Blood Count 4.4x10^3/uL (4.0-11.0) Red Blood Count 4.45x10^6/uL (4.30-5.70) Hemoglobin 14.2g/dL (13.0-17.5) Hematocrit 41.7% (39.0-53.0) Mean Corpuscular Volume 94fL (79-100) Mean Corpuscular Hemoglobin 32pg (25-35) Mean Corpuscular Hemoglobin Concent 34g/dL (31-37) Red Cell Distribution Width 18.0% (11.5-14.5) Platelet Count 138x10^3/uL (140-400) Neutrophils (%) (Auto) 69% (31-73) Lymphocytes (%) (Auto) 18% (24-48) Monocytes (%) (Auto) 14% (0-9) Eosinophils (%) (Auto) 0% (0-3) Basophils (%) (Auto) 0% (0-3) Neutrophils # (Auto) 3.0x10^3uL (1.8-7.7) Lymphocytes # (Auto) 0.8x10^3/uL (1.0-4.8) Monocytes # (Auto) 0.6x10^3/uL (0.0-1.1) Eosinophils # (Auto) 0.0x10^3/uL (0.0-0.7) Basophils # (Auto) 0.0x10^3/uL (0.0-0.2) Sodium Level 137mmol/L (136-145) Potassium Level 3.8mmol/L (3.5-5.1) Chloride Level 106mmol/L (98-107) Carbon Dioxide Level 25mmol/L (21-32) Anion Gap 6 (6-14) Blood Urea Nitrogen 13mg/dL (8-26) Creatinine 0.7mg/dL (0.7-1.3) Estimated GFR (Cockcroft-Gault) 108.0 Glucose Level 103mg/dL (70-99) Calcium Level 8.6mg/dL (8.5-10.1) Medications Current Medications Ondansetron HCl (Zofran) 4 mg 1X ONCE IV ; Start 04/14/16 at 21:30; Stop at 21:31; Status DC Oseltamivir Phosphate (Tamiflu) 75 mg BID PO Last administered on 04/16/16 08: 22; Start 04/15/16 at 09:00; Stop 04/19/16 at 09:01 Oseltamivir Phosphate (Tamiflu) 75 mg 1X ONCE PO Last administered on 02:01; Start 04/15/16 at 00:00; Stop 04/15/16 at 00:01; Status DC Ondansetron HCl 4 mg 4 mg PRN Q8HRS PRN IV NAUSEA/VOMITING; Start 04/15/16 at 00 :15; Stop 04/16/16 at 00:14; Status DC Sodium Chloride (Iv Sodium Chloride 0.9% 1000ml Bag) 1,000 ml @ 100 mls/hr Q10H IV Last administered on 04/15/16 20:13; Start 04/15/16 at 00:30; Stop at 00:29; Status DC Acetaminophen (Tylenol) 650 mg PRN Q4HRS PRN PO FEVER Last administered on 20:09; Start 04/15/16 at 00:15; Stop 04/16/16 at 00:14; Status DC Albuterol/ Ipratropium (Duoneb) 3 ml RTQID NEB Last administered on 04/16/16 07 :21; Start 04/15/16 at 08:00; Stop 04/16/16 at 07:59; Status DC Acetaminophen (Tylenol Arthritis) 650 mg BID PO Last administered on 04/16/16 08:21; Start 04/15/16 at 21:00 Ferrous Sulfate (Feosol) 325 mg DAILY PO Last administered on 04/16/16 08:22; Start 04/16/16 at 09:00 Acetaminophen/ Hydrocodone Bitart (Lortab 5/325) 1 tab BID PO Last administered on 04/16/16 08:23; Start 04/15/16 at 21:00 Oxybutynin Chloride (Ditropan) 5 mg DAILY PO Last administered on 04/16/16 08: 22; Start 04/16/16 at 09:00 Simvastatin (Zocor) 20 mg QHS PO Last administered on 04/15/16 21:01; Start 04/15/16 at 21:00 Tamsulosin HCl (Flomax) 0.4 mg DAILY PO Last administered on 04/16/16 08:22; Start 04/16/16 at 09:00 Multivitamins/ Calcium (Thera M Plus) 1 tab DAILY PO Last administered on 08:21; Start 04/16/16 at 09:00 Pantoprazole Sodium (Protonix) 40 mg DAILYAC PO Last administered on 04/16/16 07:55; Start 04/16/16 at 07:30 Famotidine (Pepcid) 20 mg BID PO Last administered on 04/16/16 08:21; Start 04/15/16 at 21:00 Calcium Carbonate/ Glycine (Tums) 500 mg PRN AFTMEALHC PRN PO INDIGESTION Last administered on 04/15/16 21:01; Start 04/15/16 at 20:45 Ondansetron HCl (Zofran Odt) 4 mg PRN Q4HRS PRN PO NAUSEA/VOMITING Last administered on 2/6/17at 01:14; Start 04/16/16 at 01:15 Active Scripts Active Reported Simvastatin 20 Mg Tablet 1 Tab PO QHS Hydrocodone-Apap 5-325 (Hydrocodone Bit/Acetaminophen) 1 Each Tablet 1 Tab PO BID Arthritis Pain Relief (Acetaminophen) 650 Mg Tablet.er 650 Mg PO BID Tamsulosin Hcl 0.4 Mg Cap.er.24h 1 Cap PO DAILY Hydralazine Hcl 25 Mg Tablet 1 Tab PO TID Iron (Ferrous Sulfate) 325 Mg Tablet 325 Mg PO DAILY Oxybutynin Chloride 5 Mg Tablet 5 Mg PO DAILY Multi-Vitamin Daily (Multivitamin) 1 Each Tablet 1 Each PO DAILY Omeprazole 20 Mg Tablet.dr 20 Mg PO BID Vitals/I & O Vital Sign - Last 24 Hours 04/15/16 04/15/16 04/15/16 04/15/16 10:50 11:00 14:46 15:00 Temp 97.9 100.9 97.9 100.9 Pulse 70 80 Resp 18 18 B/P 149/79 141/71 Pulse Ox 96 94 96 O2 Delivery Nasal Cannula Nasal Cannula Nasal Cannula Room Air O2 Flow Rate 2.5 2.0 2.0 04/15/16 04/15/16 04/15/16 04/15/16 19:00 20:00 20:38 23:00 Temp 99.0 98.5 99.0 98.5 Pulse 79 70 Resp 18 18 B/P 154/73 142/80 Pulse Ox 89 97 95 O2 Delivery Nasal Cannula Nasal Cannula Nasal Cannula Nasal Cannula O2 Flow Rate 2.0 2.0 2.0 2.0 04/16/16 04/16/16 04/16/16 04/16/16 03:00 07:00 07:24 08:23 Temp 98.3 97.9 98.3 97.9 Pulse 66 55 Resp 18 16 B/P 157/82 138/82 Pulse Ox 94 91 91 O2 Delivery Nasal Cannula Nasal Cannula Nasal Cannula Nasal Cannula O2 Flow Rate 2.0 2.0 2.0 04/16/16 08:30 O2 Delivery Nasal Cannula O2 Flow Rate 2.0 Intake and Output 04/15/16 04/15/16 04/16/16 15:00 23:00 07:00 Output Total 1500 ml 950 ml Balance -1500 ml -950 ml WATSON JONES MD Apr 16, 2016 10:38
[2016-04-16 11:12] VITALS: BP 118/73
[2016-04-16] MEDS: CEFTRIAXONE SODIUM 1 GM in IV NORMAL SALINE 50ML 50 ML IV SCH (12:19)
[2016-04-16] MEDS: AZITHROMYCIN 500 MG in IV NORMAL SALINE 250ML 250 ML IV SCH (12:23)
[2016-04-16 15:00] VITALS: BP 112/63
[2016-04-16 19:00] VITALS: BP 127/81
[2016-04-16] MEDS: SIMVASTATIN 20 MG TABLET PO SCH (20:11)
[2016-04-16 23:00] VITALS: BP 129/73
[2016-04-17] VITALS (7 sets, daily range): BP systolic 110–163; BP diastolic 67–86
[2016-04-17] MEDS: OXYBUTYNIN CHLORIDE 5 MG TABLET PO SCH (08:38)
[2016-04-17] MEDS: PANTOPRAZOLE 40 MG TABLET. PO SCH (08:38)
[2016-04-17] MEDS: FAMOTIDINE 20 MG TABLET. PO SCH ×2 (08:38→22:06)
[2016-04-17] MEDS: OSELTAMIVIR 75 MG CAPSULE PO SCH ×2 (08:38→22:06)
[2016-04-17] MEDS: FERROUS SULFATE 325 MG TABLET PO SCH (08:38)
[2016-04-17] MEDS: MULTIVITAMIN with MINERAL TABLET. PO SCH (08:38)
[2016-04-17] MEDS: TAMSULOSIN 0.4 MG CAP.ER.24H. PO SCH (08:39)
[2016-04-17] MEDS: HYDROCODONE/APAP 5/325MG TABLET. PO SCH ×2 (08:39→22:06)
[2016-04-17] MEDS: ACETAMINOPHEN 650 MG TABLET.ER PO SCH ×2 (08:40→21:00)
--- NOTE | 2016-04-17 09:42 | PDOC ---
PROGRESS NOTES Subjective Subjective Pt awake and pleasant. States he continues to feel bad. States he is SOB with exertion. States he has a poor appetite and generalized body aches. Objective Objective Pt awake and alert. NAD at rest. VSS. Febrile with tmax of 99.3. Lung sounds diminished with expiratory wheeze. Resp even and unlabored. Pt on 2L of O2 per NC. Heart with RRR. No murmurs. Vital Signs Date Time Temp Pulse Resp B/P Pulse Ox O2 Delivery O2 Flow Rate FiO2 04/17/16 08:50 Nasal Cannula 2.0 04/17/16 08:15 96 04/17/16 07:45 99.3 14 140/84 99.3 04/17/16 03:00 55 Intake and Output 04/17/16 07:00 Intake Total 280 ml Output Total 250 ml Balance 30 ml Intake Oral 280 ml Output Urine Total 250 ml # Voids 2 Assessment Assessment Problems Medical Problems: (1) Hypoxia Status: Acute (2) Influenza A Status: Acute Plan Plan of Care 1. Influenza A with bibasilar infiltrates -Tamiflu A -Rocephin 1g IV q12 started 04/16 -Zithromax 500mg IV qd started 04/16 -O2 to maintain sats >92% Hopeful for Dc home tomorrow am. Pt will Dc on Tamiflu. Med hx: Remarkable for hypertension, GERD, hyperlipidemia, BPH Comment Review of Relevant I have reviewed the following items evaristo (where applicable) has been applied. Labs Laboratory Tests Test 04/16/16 03:45 White Blood Count 4.4x10^3/uL (4.0-11.0) Red Blood Count 4.45x10^6/uL (4.30-5.70) Hemoglobin 14.2g/dL (13.0-17.5) Hematocrit 41.7% (39.0-53.0) Mean Corpuscular Volume 94fL (79-100) Mean Corpuscular Hemoglobin 32pg (25-35) Mean Corpuscular Hemoglobin Concent 34g/dL (31-37) Red Cell Distribution Width 18.0% (11.5-14.5) Platelet Count 138x10^3/uL (140-400) Neutrophils (%) (Auto) 69% (31-73) Lymphocytes (%) (Auto) 18% (24-48) Monocytes (%) (Auto) 14% (0-9) Eosinophils (%) (Auto) 0% (0-3) Basophils (%) (Auto) 0% (0-3) Neutrophils # (Auto) 3.0x10^3uL (1.8-7.7) Lymphocytes # (Auto) 0.8x10^3/uL (1.0-4.8) Monocytes # (Auto) 0.6x10^3/uL (0.0-1.1) Eosinophils # (Auto) 0.0x10^3/uL (0.0-0.7) Basophils # (Auto) 0.0x10^3/uL (0.0-0.2) Sodium Level 137mmol/L (136-145) Potassium Level 3.8mmol/L (3.5-5.1) Chloride Level 106mmol/L (98-107) Carbon Dioxide Level 25mmol/L (21-32) Anion Gap 6 (6-14) Blood Urea Nitrogen 13mg/dL (8-26) Creatinine 0.7mg/dL (0.7-1.3) Estimated GFR (Cockcroft-Gault) 108.0 Glucose Level 103mg/dL (70-99) Calcium Level 8.6mg/dL (8.5-10.1) Medications Current Medications Ondansetron HCl (Zofran) 4 mg 1X ONCE IV ; Start 04/14/16 at 21:30; Stop at 21:31; Status DC Oseltamivir Phosphate (Tamiflu) 75 mg BID PO Last administered on 04/17/16 08: 38; Start 04/15/16 at 09:00; Stop 04/19/16 at 09:01 Oseltamivir Phosphate (Tamiflu) 75 mg 1X ONCE PO Last administered on 02:01; Start 04/15/16 at 00:00; Stop 04/15/16 at 00:01; Status DC Ondansetron HCl 4 mg 4 mg PRN Q8HRS PRN IV NAUSEA/VOMITING; Start 04/15/16 at 00 :15; Stop 04/16/16 at 00:14; Status DC Sodium Chloride (Iv Sodium Chloride 0.9% 1000ml Bag) 1,000 ml @ 100 mls/hr Q10H IV Last administered on 04/15/16 20:13; Start 04/15/16 at 00:30; Stop at 00:29; Status DC Acetaminophen (Tylenol) 650 mg PRN Q4HRS PRN PO FEVER Last administered on 20:09; Start 04/15/16 at 00:15; Stop 04/16/16 at 00:14; Status DC Albuterol/ Ipratropium (Duoneb) 3 ml RTQID NEB Last administered on 04/16/16 07 :21; Start 04/15/16 at 08:00; Stop 04/16/16 at 07:59; Status DC Acetaminophen (Tylenol Arthritis) 650 mg BID PO Last administered on 04/17/16 08:40; Start 04/15/16 at 21:00 Ferrous Sulfate (Feosol) 325 mg DAILY PO Last administered on 04/17/16 08:38; Start 04/16/16 at 09:00 Acetaminophen/ Hydrocodone Bitart (Lortab 5/325) 1 tab BID PO Last administered on 04/17/16 08:39; Start 04/15/16 at 21:00 Oxybutynin Chloride (Ditropan) 5 mg DAILY PO Last administered on 04/17/16 08: 38; Start 04/16/16 at 09:00 Simvastatin (Zocor) 20 mg QHS PO Last administered on 04/16/16 20:11; Start 04/15/16 at 21:00 Tamsulosin HCl (Flomax) 0.4 mg DAILY PO Last administered on 04/17/16 08:39; Start 04/16/16 at 09:00 Multivitamins/ Calcium (Thera M Plus) 1 tab DAILY PO Last administered on 08:38; Start 04/16/16 at 09:00 Pantoprazole Sodium (Protonix) 40 mg DAILYAC PO Last administered on 04/17/16 08:38; Start 04/16/16 at 07:30 Famotidine (Pepcid) 20 mg BID PO Last administered on 04/17/16 08:38; Start 04/15/16 at 21:00 Calcium Carbonate/ Glycine (Tums) 500 mg PRN AFTMEALHC PRN PO INDIGESTION Last administered on 04/15/16 21:01; Start 04/15/16 at 20:45 Ondansetron HCl 4 mg 4 mg PRN Q4HRS PRN PO NAUSEA/VOMITING Last administered on 04/16/16 22:45; Start 04/16/16 at 01:15 Ceftriaxone Sodium 1 gm/ Sodium Chloride 50 ml @ 100 mls/hr Q24H IV Last administered on 04/16/16 12:19; Start 04/16/16 at 11:00 Azithromycin/ Sodium Chloride (Zithromax/Iv Sodium Chloride 0.9% 250ml) 250 ml @ 250 mls/hr Q24H IV Last administered on 04/16/16 12:23; Start 04/16/16 at 11: 00 Active Scripts Active Reported Simvastatin 20 Mg Tablet 1 Tab PO QHS Hydrocodone-Apap 5-325 (Hydrocodone Bit/Acetaminophen) 1 Each Tablet 1 Tab PO BID Arthritis Pain Relief (Acetaminophen) 650 Mg Tablet.er 650 Mg PO BID Tamsulosin Hcl 0.4 Mg Cap.er.24h 1 Cap PO DAILY Hydralazine Hcl 25 Mg Tablet 1 Tab PO TID Iron (Ferrous Sulfate) 325 Mg Tablet 325 Mg PO DAILY Oxybutynin Chloride 5 Mg Tablet 5 Mg PO DAILY Multi-Vitamin Daily (Multivitamin) 1 Each Tablet 1 Each PO DAILY Omeprazole 20 Mg Tablet.dr 20 Mg PO BID Vitals/I & O Vital Sign - Last 24 Hours 04/16/16 04/16/16 04/16/16 04/16/16 11:12 11:52 15:00 19:00 Temp 98.2 98.1 98.8 98.2 98.1 98.8 Pulse 72 72 74 Resp 16 16 17 B/P 118/73 112/63 127/81 Pulse Ox 93 97 94 94 O2 Delivery Nasal Cannula Nasal Cannula Nasal Cannula Nasal Cannula O2 Flow Rate 2.0 2.0 2.0 2.0 04/16/16 04/16/16 04/16/16 04/17/16 20:15 20:30 23:00 03:00 Temp 99.5 98.1 99.5 98.1 Pulse 64 55 Resp 18 18 B/P 129/73 127/80 Pulse Ox 95 94 O2 Delivery Nasal Cannula Room Air Nasal Cannula Nasal Cannula O2 Flow Rate 2.0 2.0 2.0 04/17/16 04/17/16 04/17/167/17 07:45 08:15 08:39 08:50 Temp 99.3 99.3 Resp 14 B/P 140/84 Pulse Ox 92 96 O2 Delivery Nasal Cannula Nasal Cannula Nasal Cannula Nasal Cannula O2 Flow Rate 2.0 2.0 2.0 2.0 Intake and Output 04/16/16 04/16/16 04/17/16 15:00 23:00 07:00 Intake Total 280 ml 0 ml Output Total 250 ml Balance 30 ml 0 ml APPL,WATSON Aquino MD Apr 17, 2016 09:42
[2016-04-17] MEDS: AZITHROMYCIN 500 MG in IV NORMAL SALINE 250ML 250 ML IV SCH (12:17)
[2016-04-17] MEDS: ONDANSETRON ODT 4 MG TAB.RAPDIS PO PRN (13:14)
[2016-04-17] MEDS: CEFTRIAXONE SODIUM 1 GM in IV NORMAL SALINE 50ML 50 ML IV SCH (13:17)
[2016-04-17] MEDS ORDERED: ONDANSETRON PF 4 MG/2 ML VIAL. IV PRN (14:45)
[2016-04-17] MEDS ORDERED: METOCLOPRAMIDE HCL 10 MG/2 ML VIAL. IV PRN (17:30)
[2016-04-17] MEDS: CALCIUM CARBONATE 500 MG TAB.CHEW PO PRN (22:05)
[2016-04-17] MEDS: SIMVASTATIN 20 MG TABLET PO SCH (22:06)
[2016-04-18 03:00] VITALS: BP 132/81
[2016-04-18 07:00] VITALS: BP 125/77
[2016-04-18] MEDS: FAMOTIDINE 20 MG TABLET. PO SCH ×2 (08:06→20:16)
[2016-04-18] MEDS: HYDROCODONE/APAP 5/325MG TABLET. PO SCH ×2 (08:06→20:16)
[2016-04-18] MEDS: MULTIVITAMIN with MINERAL TABLET. PO SCH (08:06)
[2016-04-18] MEDS: OXYBUTYNIN CHLORIDE 5 MG TABLET PO SCH (08:06)
[2016-04-18] MEDS: OSELTAMIVIR 75 MG CAPSULE PO SCH ×2 (08:06→20:16)
[2016-04-18] MEDS: FERROUS SULFATE 325 MG TABLET PO SCH (08:06)
[2016-04-18] MEDS: PANTOPRAZOLE 40 MG TABLET. PO SCH (08:06)
[2016-04-18] MEDS: TAMSULOSIN 0.4 MG CAP.ER.24H. PO SCH (08:06)
[2016-04-18] MEDS: ACETAMINOPHEN 650 MG TABLET.ER PO SCH ×2 (08:06→20:18)
--- NOTE | 2016-04-18 09:53 | RAD ---
Indication difficulty breathing. Pneumonia. PA and lateral views of the chest were obtained and are compared to an examination 4 days earlier. The heart and pulmonary vessels are normal. Aeration of the lung bases has improved and no definite pneumonia is seen on today's exam. There is no pleural fluid or pneumothorax. IMPRESSION: Improved aeration of the lung bases relative to the prior study. No focal infiltrate is seen on today's examination suggesting pneumonia
--- NOTE | 2016-04-18 09:54 | PDOC ---
SUBJECTIVE Subjective feels ok, still some cough OBJECTIVE Vital Signs Vital Signs Date Time Temp Pulse Resp B/P Pulse Ox O2 Delivery O2 Flow Rate FiO2 04/18/16 09:30 Room Air 04/18/16 08:06 Room Air 04/18/16 08:03 Room Air 04/18/16 07:00 97.7 67 18 125/77 93 Nasal Cannula 2.0 97.7 04/18/16 03:00 97.5 67 18 132/81 94 Nasal Cannula 2.0 97.5 04/17/16 23:00 97.9 94 18 129/86 93 Nasal Cannula 2.0 97.9 04/17/16 20:00 Room Air 04/17/16 19:00 98.4 73 18 135/85 94 Nasal Cannula 2.0 98.4 04/17/16 15:00 97.5 56 18 163/71 95 Nasal Cannula 2.0 97.5 04/17/16 11:25 97.9 60 20 111/75 Nasal Cannula 2.0 97.9 04/17/16 11:00 97.5 70 18 110/67 93 Nasal Cannula 2.0 97.5 I & O Intake and Output 04/18/16 07:00 Intake Total 180 ml Output Total 925 ml Balance -745 ml Intake Oral 180 ml Output Urine Total 925 ml # Voids 1 # Bowel Movements 1 PHYSICAL EXAM Physical Exam lungs decrease BS heart RRR abd soft ext no edema ASSESSMENT/PLAN Assessment/Plan 1. Influenza A with bibasilar infiltrates on Tamiflu A -switch to ABx by mouth - recheck CXR - [address] 2. hypertension, GERD, hyperlipidemia, BPH plan home in AM Problems: KEVIN MORIN MD Apr 18, 2016 09:54
[2016-04-18 10:46] VITALS: BP 124/75
[2016-04-18] MEDS: AZITHROMYCIN 250 MG TABLET PO SCH (11:45)
[2016-04-18 14:45] VITALS: BP 109/69
[2016-04-18] MEDS ORDERED: AZIT250T6 PO (17:48)
[2016-04-18 19:00] VITALS: BP 128/79
[2016-04-18] MEDS: CALCIUM CARBONATE 500 MG TAB.CHEW PO PRN (20:15)
[2016-04-18] MEDS: SIMVASTATIN 20 MG TABLET PO SCH (20:16)
[2016-04-18 23:00] VITALS: BP 123/73
[2016-04-19 03:00] VITALS: BP 120/78
[2016-04-19 06:00] LABS: HEMATOCRIT 40.9 % (39.0-53.0); HEMOGLOBIN 13.8 g/dL (13.0-17.5); RED BLOOD COUNT 4.3 x10^6/uL (4.30-5.70); RED CELL DISTRIBUTION WIDTH 16.7 % (11.5-14.5); WHITE BLOOD COUNT 3.2 x10^3/uL (4.0-11.0)
[2016-04-19] MEDS: PANTOPRAZOLE 40 MG TABLET. PO SCH (06:01)
[2016-04-19 06:05] LABS: CALCIUM 8.7 mg/dL (8.5-10.1); CREATININE 0.8 mg/dL (0.7-1.3); GFR 92.5
[2016-04-19 07:00] VITALS: BP 138/76
[2016-04-19] MEDS: AZITHROMYCIN 250 MG TABLET PO SCH (09:20)
[2016-04-19] MEDS: TAMSULOSIN 0.4 MG CAP.ER.24H. PO SCH (09:20)
[2016-04-19] MEDS: MULTIVITAMIN with MINERAL TABLET. PO SCH (09:20)
[2016-04-19] MEDS: FAMOTIDINE 20 MG TABLET. PO SCH (09:20)
[2016-04-19] MEDS: OXYBUTYNIN CHLORIDE 5 MG TABLET PO SCH (09:20)
[2016-04-19] MEDS: OSELTAMIVIR 75 MG CAPSULE PO SCH (09:20)
[2016-04-19] MEDS: FERROUS SULFATE 325 MG TABLET PO SCH (09:20)
[2016-04-19] MEDS: ACETAMINOPHEN 650 MG TABLET.ER PO SCH (09:20)
[2016-04-19] MEDS: HYDROCODONE/APAP 5/325MG TABLET. PO SCH (09:21)
[2016-04-19 10:41] VITALS: BP 129/74
--- NOTE | 2016-04-19 10:59 | PDOC ---
SUBJECTIVE Subjective feels better OBJECTIVE Objective VSS Vital Signs Vital Signs Date Time Temp Pulse Resp B/P Pulse Ox O2 Delivery O2 Flow Rate FiO2 04/19/16 10:41 97.8 68 20 129/74 93 Nasal Cannula 2.0 97.8 04/19/16 09:21 Room Air 04/19/16 08:30 Room Air 04/19/16 07:00 97.8 66 18 138/76 93 Nasal Cannula 2.0 97.8 04/19/16 03:00 97.0 60 20 120/78 95 Nasal Cannula 2.0 97.0 04/18/16 23:00 97.9 75 20 123/73 95 Nasal Cannula 2.0 97.9 04/18/16 21:16 20 Room Air 04/18/16 20:16 20 95 Room Air 04/18/16 20:00 Room Air 04/18/16 19:00 97.9 75 20 128/79 93 Nasal Cannula 2.0 97.9 04/18/16 14:45 97.6 70 18 109/69 95 Nasal Cannula 2.0 97.6 I & O Intake and Output 04/19/16 07:00 Intake Total 700 ml Output Total 500 ml Balance 200 ml Intake Oral 650 ml IV Total 50 ml Output Urine Total 500 ml # Voids 3 PHYSICAL EXAM Physical Exam lungs fairly clear and good air movement heart RRR abd soft ext no edema ASSESSMENT/PLAN Assessment/Plan home today, CXR better, 2 more day zithromax, will benefit from home health Problems: COMMENT Lab Laboratory Tests Test 04/19/16 05:25 White Blood Count 3.2x10^3/uL (4.0-11.0) Red Blood Count 4.30x10^6/uL (4.30-5.70) Hemoglobin 13.8g/dL (13.0-17.5) Hematocrit 40.9% (39.0-53.0) Mean Corpuscular Volume 95fL (79-100) Mean Corpuscular Hemoglobin 32pg (25-35) Mean Corpuscular Hemoglobin Concent 34g/dL (31-37) Red Cell Distribution Width 16.7% (11.5-14.5) Platelet Count 150x10^3/uL (140-400) Sodium Level 141mmol/L (136-145) Potassium Level 4.0mmol/L (3.5-5.1) Chloride Level 106mmol/L (98-107) Carbon Dioxide Level 28mmol/L (21-32) Anion Gap 7 (6-14) Blood Urea Nitrogen 17mg/dL (8-26) Creatinine 0.8mg/dL (0.7-1.3) Estimated GFR (Cockcroft-Gault) 92.5 Glucose Level 98mg/dL (70-99) Calcium Level 8.7mg/dL (8.5-10.1) KEVIN MORIN MD Apr 19, 2016 10:58
--- NOTE | 2016-04-19 11:02 | PDOC3 ---
Discharge Summary* Date of Admission: Apr 14, 2016 Date of Discharge: Apr 19, 2016 Admitting Diagnosis Problems Medical Problems: (1) Hypoxia Status: Acute (2) Influenza A Status: Acute Final Diagnosis 1. Influenza A 2- bibasilar infiltrates mild pneumonia , hypoxia repeat CXR better 3. hypertension, 4 GERD, 5 hyperlipidemia, 6 BPH Medical Problems: (1) Hypoxia Status: Acute (2) Influenza A Status: Acute Procedures CXR x2 Brief Hospital Course Mr. Venegas is a 80 old [sex] who presented with [ ] Disposition/Orders: D/C to Home w/ HH CONDITION AT DISCHARGE: Improved Diet: Cardiac Scheduled Acetaminophen (Arthritis Pain Relief) 650 MG PO BID (Reported) Ferrous Sulfate (Iron) 325 MG PO DAILY (Reported) Hydralazine Hcl (Hydralazine Hcl) 1 TAB PO TID (Reported) Hydrocodone Bit/Acetaminophen (Hydrocodone-Apap 5-325 ) 1 TAB PO BID ( Reported) Multivitamin (Multi-Vitamin Daily) 1 EACH PO DAILY (Reported) Omeprazole (Omeprazole) 20 MG PO BID (Reported) Oxybutynin Chloride (Oxybutynin Chloride) 5 MG PO DAILY (Reported) Simvastatin (Simvastatin) 1 TAB PO QHS (Reported) Tamsulosin Hcl (Tamsulosin Hcl) 1 CAP PO DAILY (Reported) FOLLOW UP APPOINTMENT: Dr. Farmer in 2 weeks Time Spent Total time spent with patient [] minutes for coordination of care, counseling, and education. KEVIN MORIN MD Apr 19, 2016 11:02
== END 2016-04-19 15:30 | disposition home health service (06) | DRG 194 ==
LOC: ER 21:02 → 4 NORTH 23:44
PROVIDERS: ADMIT Family Medicine; ATTEND Family Medicine
DX: J09.X2 Influenza due to identified novel influenza A virus with other respiratory manifestations (principal); J98.11 Atelectasis; Z91.041 Radiographic dye allergy status; E78.00 Pure hypercholesterolemia, unspecified; E78.5 Hyperlipidemia, unspecified; I10 Essential (primary) hypertension; K21.9 Gastro-esophageal reflux disease without esophagitis; N40.0 Benign prostatic hyperplasia without lower urinary tract symptoms; R09.02 Hypoxemia
CPT/HCPCS: 36415; 71010; 71020; 80048; 80053; 81001; 83605; 83690; 84484; 85007; 85027; 85610; 85730; 87804; 93005; 94250; 94620; 94640; 94760; G0480; G0481; J0456; J0696; J2405; J7030; J7050; J7620; Q0144; Q0162; 97116; 97530; 99285-25

== ENCOUNTER → 2016-07-24 | Outpatient (CLI) | payer OTHER ==
[~2016-07-24] MED LIST changes: +AZIT250T6 PO
--- NOTE | 2016-07-24 14:25 | CARD ---
APPROVED REPORT EXAM: Two-dimensional and M-mode echocardiogram with Doppler and color Doppler. Other Information Quality : Average Rhythm : NSR INDICATION Dyspnea Peripheral Edema Chest Pain 2D DIMENSIONS RVDd2.7 (2.9-3.5cm)Left Atrium(2D)3.0 (1.6-4.0cm) IVSd1.1 (0.7-1.1cm)Aortic Root(2D)3.0 (2.0-3.7cm) LVDd4.7 (3.9-5.9cm)LVOT Diameter2.2 (1.8-2.4cm) PWd1.1 (0.7-1.1cm)LVDs3.7 (2.5-4.0cm) FS (%) 21.7 %SV45.6 ml LVEF(%)44.9 (>50%) Aortic Valve AoV Peak Franklyn.122.1cm/sAoV VTI25.4cm AO Peak GR.6.0mmHgLVOT Peak Franklyn.99.1cm/s AO Mean GR.3mmHgAVA (VMAX)3.00cm2 AI P 1/2 Huko001yy Mitral Valve MV E Dcgmwyhh91.5cm/sMV E Peak Gr.3mmHg MV DECEL [id number] A Pfrfhmoc69.3cm/s MV E Mean Gr.1mmHgMV DMU35gr E/A Ratio0.7MV A Hzcscuhq841lv MVA (PHT)2.56cm2 Tricuspid Valve TR P. Jghwfukn862vp/sRAP AIOEZNZZ7xiKg TR Peak Gr.97sqOaXMOW39eoJp LEFT VENTRICLE The left ventricle is normal size. There is normal left ventricular wall thickness. Left ventricle sy stolic function is low normal. The Ejection Fraction is 55%. There is normal LV segmental wall motion . Septal motion consistent with conduction abnormality. Tissue Doppler imaging reveals mild left vent ricular diastolic dysfunction. There is no ventricular septal defect visualized. RIGHT VENTRICLE The right ventricle is normal size. The right ventricular systolic function is normal. ATRIA The left atrium size is normal. The right atrium size is normal. The interatrial septum is intact wit h no evidence for an atrial septal defect or patent foramen ovale as noted on 2-D or Doppler imaging. AORTIC VALVE The aortic valve is moderately calcified but opens well. Can not rule out bicuspid valve. Doppler and Color Flow revealed mild aortic regurgitation. There is no significant aortic valvular stenosis. MITRAL VALVE The mitral valve leaflets are thickened. There is no mitral valve stenosis. Doppler and Color Flow re vealed mild mitral regurgitation. TRICUSPID VALVE Thickened anterior leaflet. Vegetation vs. scalloped leaflet or chordae. Doppler and Color Flow revea led mild tricuspid regurgitation. The PA pressure was estimated at 34 mmHg. There is no tricuspid blnaca ve stenosis. PULMONIC VALVE The pulmonic valve is not well visualized. Doppler and Color Flow revealed mild pulmonic valvular reg urgitation. There is no pulmonic valvular stenosis. GREAT VESSELS The aortic root is normal in size. The ascending aorta is normal in size. Pulmonary veins not recorde d. The IVC is normal in size and collapses >50% with inspiration. PERICARDIAL EFFUSION There is no evidence of significant pericardial effusion. Critical Notification Critical Value: No <Conclusion> Left ventricle systolic function is low normal. The Ejection Fraction is 55%. There is normal LV segmental wall motion. Septal motion consistent with conduction abnormality. The aortic valve is moderately calcified but opens well. Can not rule out bicuspid valve. Doppler and Color Flow revealed mild aortic regurgitation. Thickened anterior leaflet of the tricuspid valve, cannot rule out vegetation vs. scalloped leaflet o r chordae. Consider AB for further evaluation.
== END | disposition home or self-care (01) ==
LOC: ECHO 10:09
PROVIDERS: ATTEND Physician Assistant Medical
DX: I08.3 Combined rheumatic disorders of mitral, aortic and tricuspid valves (principal); R06.00 Dyspnea, unspecified; R06.02 Shortness of breath; R60.9 Edema, unspecified; R07.89 Other chest pain
CPT/HCPCS: 93306

== ENCOUNTER → 2016-10-03 | Outpatient (CLI) | payer OTHER ==
[~2016-10-03] MED LIST changes: +ACET-804 PO; -ACET650T8 PO; +FERR-36 PO; -FERR325T31 PO; -HYDR-2666 PO; +HYDR-2758 PO; -OMEP20TA PO; +OMEP20TA8 PO; +REGADENOSON 0.4 MG/5 ML DISP.SYRIN. IV ONE
--- NOTE | 2016-10-03 18:34 | RAD ---
APPROVED REPORT Test Type: Pharmacological Stress Nurse/Tech: MITUL CORTEZ Test Indications: CHEST PAIN, SHORTNESS OF BREATH Cardiac History: NONE STATED, SEE EHR Medications: SEE EHR Medical History: PAST SMOKER, SEE EHR Resting ECG: SR Resting Heart Rate: 60 bpm Resting Blood Pressure: 159/81mmHg Pretest Chest Pain: No chest pain Nurse/Tech Notes LUNG SOUNDS CLEAR, S1S2 WNL. Consent: The procedure was explained to the patient in lay terms. Informed consent was witnessed. Vinicio eout was entered into [employer]. History and Stress Test performed by RT Isadora (R) (N) Pharm. Details Pharmacologic stress testing was performed using 0.4mg per 5ml of regadenoson given intravenously ove r 7-10 seconds. Stress Symptoms STOMACH CRAMPING. POST EXERCISE Reason for Termination: Infusion complete Max HR: 60 bpm Max Blood Pressure: 159/81mmHg Chest Pain: No. Arrhythmia: No. ST Change: No. Rest: Stress: Viability: Radiopharm.Tc99m RokkooswbLq19a Sestamibi Mkar38yZf 33mCi Duration 15min. 12min. Img Date 10/03/2016 10/03/2016 Inj-Img Iltf97bks. 60min. Rest Admin Site:IV - Right AntecubitalAdministrator:RT Mary Beth (R)(N) Stress Admin Site: IV - Right AntecubitalAdministrator: RT Isadora (R)(N) STRESS DATA End Diast. Vol.110.0mlAv. Heart Rate66.0bpm LVEDV index BSA2.0mlCardiac Output0.1L/min End Syst. Vol.38.0mlCO Index BSA4.8L/min LVESV index BSA1.0mlMyocardial Fqxk630.0g Eject. Uxsqbuxq11.0% Stress Rates Pk. Fill Rate2.32EDV/secLVtime Pk. Fill 149.94msec Pk. Empty Rate3.53ESV/secLVtime Pk. Dxkwc963.68msec /3 Pk. Fill1.66EDV/sec Stress Scores Regional WT0.00Summed WT3.00 Regional WM0.00Summed WM3.00 LV Perf. Quant 17 Seg. SSS0.00 17 Seg. SRS0.00 17 Seg. SDS0.00 Stress Defect Extent (% LAD)0.00Rest Defect Extent (% LAD)0.00Rev. Defect Extent (% LAD)0.00 Stress Defect Extent (% LCX) 0.00Rest Defect Extent (% LCX)0.00Rev. Defect Extent (% LCX)0.00 Stress Defect Extent (% RCA)0.00Rest Defect Extent (% RCA)0.00Rev. Defect Extent (% RCA)0.00 Stress Defect Extent (% LIMA)0.00Rest Defect Extent (% LIMA)0.00Rev. Defect Extent (% LIMA)0.00 Conclusion 1. No electrocardiographic changes suggestive of myocardial ischemia with pharmacological stress. 2. No perfusion defects to suggest myocardial ischemia or scar. 3. Normal wall motion and wall thickening with an ejection fraction of 65%. 4. Scan indicateslow risk for future cardiac events.
== END | disposition home or self-care (01) ==
LOC: NM 08:30
PROVIDERS: ATTEND Internal Medicine Cardiovascular Disease
DX: R07.9 Chest pain, unspecified (principal); R06.02 Shortness of breath; R60.9 Edema, unspecified; I10 Essential (primary) hypertension; E78.2 Mixed hyperlipidemia
CPT/HCPCS: 78452; 93017; 96374; 96375; 96376; A9500; J2785

== ENCOUNTER 2017-08-20 01:10 | Emergency (ER) | payer OTHER ==
[2017-08-20] MEDS: fentaNYL PF VIAL 100 MCG/2 ML VIAL IV ×2 (01:47→02:44)
[2017-08-20 01:48] LABS: ADD MAN DIFF? NO
[2017-08-20 01:50] LABS: BASO % 0 % (0-3); EOS % 1 % (0-3); HEMATOCRIT 34.7 % (39.0-53.0); HEMOGLOBIN 11.5 g/dL (13.0-17.5); LYMPH # 1.2 x10^3/uL (1.0-4.8); LYMPH % 18 % (24-48); MEAN CORPUSCULAR HEMOGLOBIN 27 pg (25-35); MEAN CORPUSCULAR HGB CONC 33 g/dL (31-37); MEAN CORPUSCULAR VOLUME 81 fL (79-100); MONO # 0.4 x10^3/uL (0.0-1.1); MONO % 7 % (0-9); NEUT # 5.1 x10^3uL (1.8-7.7); NEUT % 75 % (31-73); PLATELET COUNT 272 x10^3/uL (140-400); RED BLOOD COUNT 4.28 x10^6/uL (4.30-5.70); RED CELL DISTRIBUTION WIDTH 17.4 % (11.5-14.5); WHITE BLOOD COUNT 6.8 x10^3/uL (4.0-11.0)
[2017-08-20 01:58] LABS: ANION GAP 15 (6-14); BLOOD UREA NITROGEN 16 mg/dL (8-26); CALCIUM 8.8 mg/dL (8.5-10.1); CARBON DIOXIDE 21 mmol/L (21-32); CHLORIDE 101 mmol/L (98-107); GFR 71.2; GLUCOSE 118 mg/dL (70-99); POTASSIUM 3.7 mmol/L (3.5-5.1); SODIUM 137 mmol/L (136-145)
[2017-08-20] MEDS: LIDOCAINE 2% JELLY 6ML IN APPLICATOR. MM (02:44)
[2017-08-20] MEDS ORDERED: HYDROcodone/APAP 5/325MG 1 TAB TABLET PO (03:30)
== END 2017-08-20 04:45 | disposition home or self-care (01) ==
LOC: ER 01:10
DX: R33.9 Retention of urine, unspecified (principal); R10.2 Pelvic and perineal pain; R31.9 Hematuria, unspecified; N36.8 Other specified disorders of urethra; E78.00 Pure hypercholesterolemia, unspecified; K21.9 Gastro-esophageal reflux disease without esophagitis; F10.10 Alcohol abuse, uncomplicated; Z91.041 Radiographic dye allergy status
CPT/HCPCS: 36415; 51702; 80048; 85025; 96374; 96376; 99285-25; J3010

== ENCOUNTER 2017-08-23 12:02 | Emergency (ER) | payer OTHER ==
[2017-08-23 12:33] LABS: BILIRUBIN,URINE NEGATIVE (NEG); GLUCOSE,URINE NEGATIVE (NEG); NITRITE,URINE NEGATIVE (NEG); PH,URINE 6.5; PROTEIN,URINE 100 mg/dL (NEG-TRACE); UROBILINOGEN,URINE 0.2 mg/dL (0.2 mg/dL)
[2017-08-23 12:46] LABS: CLARITY,URINE TURBID; COLOR,URINE RED
[2017-08-23 12:47] LABS: RBC,URINE TNTC /HPF (0-2); WBC,URINE 0 /HPF (0-4)
[2017-08-23 12:48] LABS: BACTERIA,URINE 0 /HPF (0-FEW)
== END 2017-08-23 13:26 | disposition home or self-care (01) ==
LOC: ER 12:02
DX: R31.9 Hematuria, unspecified (principal); R30.0 Dysuria; K21.9 Gastro-esophageal reflux disease without esophagitis; E78.00 Pure hypercholesterolemia, unspecified; N40.0 Benign prostatic hyperplasia without lower urinary tract symptoms; F10.10 Alcohol abuse, uncomplicated; Z91.041 Radiographic dye allergy status
CPT/HCPCS: 51702; 81001; 99284-25

== ENCOUNTER 2017-08-23 17:03 | Emergency (ER) | payer OTHER ==
[2017-08-23] MEDS: OPIUM/BELLADONNA 30/16.2MG SUPP.RECT. PR (17:44)
== END 2017-08-23 18:46 | disposition home or self-care (01) ==
LOC: ER 18:46
DX: N32.89 Other specified disorders of bladder (principal); R31.9 Hematuria, unspecified; E78.00 Pure hypercholesterolemia, unspecified; K21.9 Gastro-esophageal reflux disease without esophagitis; N40.0 Benign prostatic hyperplasia without lower urinary tract symptoms; F10.10 Alcohol abuse, uncomplicated; Z91.041 Radiographic dye allergy status
CPT/HCPCS: 51702; 99284-25

== ENCOUNTER 2017-09-06 23:59 | Inpatient (IN) | payer OTHER ==
[2017-09-07] MEDS: IV NORMAL SALINE 1000ML BAG 1,000 ML IV ×4 (00:15→22:15)
[2017-09-07 00:52] LABS: BILIRUBIN,URINE NEGATIVE (NEG); CLARITY,URINE CLOUDY; COLOR,URINE YELLOW; GLUCOSE,URINE NEGATIVE (NEG); NITRITE,URINE NEGATIVE (NEG); PROTEIN,URINE 30 mg/dL (NEG-TRACE)
[2017-09-07] MEDS: ACETAMINOPHEN 500 MG TABLET PO (01:05)
[2017-09-07 01:06] LABS: BASO % 0 % (0-3); EOS % 0 % (0-3); HEMATOCRIT 28.9 % (39.0-53.0); HEMOGLOBIN 9.4 g/dL (13.0-17.5); LYMPH # 0.3 x10^3/uL (1.0-4.8); LYMPH % 5 % (24-48); MEAN CORPUSCULAR HEMOGLOBIN 26 pg (25-35); MEAN CORPUSCULAR HGB CONC 32 g/dL (31-37); MEAN CORPUSCULAR VOLUME 80 fL (79-100); MONO # 0.6 x10^3/uL (0.0-1.1); MONO % 8 % (0-9); NEUT % 87 % (31-73); PLATELET COUNT 193 x10^3/uL (140-400); RED BLOOD COUNT 3.61 x10^6/uL (4.30-5.70); WHITE BLOOD COUNT 6.9 x10^3/uL (4.0-11.0)
[2017-09-07 01:10] LABS: ADD MAN DIFF? YES
[2017-09-07 01:12] LABS: ANION GAP 12 (6-14); BLOOD UREA NITROGEN 12 mg/dL (8-26); BUN/CREATININE RATIO 12 (6-20); CALCIUM 7.8 mg/dL (8.5-10.1); CARBON DIOXIDE 24 mmol/L (21-32); CHLORIDE 102 mmol/L (98-107); GFR 71.2; GLUCOSE 142 mg/dL (70-99); POTASSIUM 3.7 mmol/L (3.5-5.1); SODIUM 138 mmol/L (136-145)
[2017-09-07 01:14] LABS: BACTERIA,URINE MANY /HPF (0-FEW); WBC,URINE TNTC /HPF (0-4)
[2017-09-07 01:15] LABS: INR 1.1 (0.8-1.1); PROTHROMBIN TIME PATIENT 14.1 SEC (11.7-14.0); SQUAMOUS EPITHELIAL CELL,UR OCC /LPF
[2017-09-07 01:18] LABS: ALBUMIN/GLOBULIN RATIO 0.8 (1.0-1.7); ALK PHOS 85 U/L (46-116); ALT (SGPT) 17 U/L (16-63); AST (SGOT) 14 U/L (15-37); TOTAL BILIRUBIN 0.4 mg/dL (0.2-1.0); TOTAL PROTEIN 6.6 g/dL (6.4-8.2)
[2017-09-07 01:27] LABS: TROPONINI < 0.017 ng/mL (0.000-0.055)
[2017-09-07 01:40] LABS: PROCALCITONIN < 0.10 ng/mL (0.00-0.10)
[2017-09-07] MEDS: PHENAZOPYRIDINE 200 MG TABLET. PO ×4 (03:19→22:58)
[2017-09-07 04:53] LABS: % BANDS 5 % (0-9); % LYMPHS 3 % (24-48); % MONOS 8 % (0-10); % SEGS 84 % (35-66); PLT ESTIMATE ADEQUATE (ADEQUATE)
[2017-09-07] MEDS: DOXYCYCLINE HYCLATE 100 MG in IV DEXTROSE 5% 100ML 100 ML IV (05:50)
[2017-09-07] MEDS ORDERED: POLYETHYLENE GLYCOL 3350 238 GM POWDER PO (12:00)
[2017-09-07] MEDS: IV DEXTROSE 5%-LACT RINGERS 1,000 ML IV ×2 (12:15→18:16)
[2017-09-07] MEDS: ACETAMINOPHEN 325 MG TABLET. PO ×2 (13:08→22:59)
[2017-09-07] MEDS: IBUPROFEN 400 MG TABLET. PO (15:55)
[2017-09-07] MEDS: PANTOPRAZOLE 40 MG TABLET.DR. PO (16:46)
[2017-09-07 17:14] LABS: MRSA BY PCR Negative (Negative)
[2017-09-07] MEDS: DONEPEZIL HCL 5 MG TABLET. PO (18:21)
[2017-09-07] MEDS: LACTOBACILLUS RHAMNOSUS GG 1 CAPSULE. PO (22:58)
[2017-09-07] MEDS: cefTRIAXone IV Push 1 GM VIAL. IVP (23:02)
[2017-09-08] MEDS: MAG HYDROX/ALUMINUM HYD/SIMETH 30 ML ORAL.SUSP PO (01:01)
[2017-09-08] MEDS: PANTOPRAZOLE 40 MG TABLET.DR. PO (08:26)
[2017-09-08] MEDS: ACETAMINOPHEN 325 MG TABLET. PO ×2 (10:05→20:51)
[2017-09-08] MEDS: LACTOBACILLUS RHAMNOSUS GG 1 CAPSULE. PO ×2 (10:05→20:50)
[2017-09-08] MEDS: PHENAZOPYRIDINE 200 MG TABLET. PO ×3 (10:08→20:50)
[2017-09-08] MEDS: IV DEXTROSE 5%-LACT RINGERS 1,000 ML IV (13:15)
[2017-09-08] MEDS: DONEPEZIL HCL 5 MG TABLET. PO (20:50)
[2017-09-08] MEDS: ANTACID PO (20:51)
[2017-09-08] MEDS: cefTRIAXone IV Push 1 GM VIAL. IVP (20:51)
[2017-09-09] MEDS: IV DEXTROSE 5%-LACT RINGERS 1,000 ML IV (03:12)
[2017-09-09] MEDS ORDERED: POLYETHYLENE GLYCOL 3350 17 GM PACKET. PO (05:49)
[2017-09-09] MEDS: PANTOPRAZOLE 40 MG TABLET.DR. PO (07:26)
[2017-09-09] MEDS: LACTOBACILLUS RHAMNOSUS GG 1 CAPSULE. PO ×2 (09:09→21:00)
[2017-09-09] MEDS: ACETAMINOPHEN 325 MG TABLET. PO ×2 (09:09→21:00)
[2017-09-09] MEDS: PHENAZOPYRIDINE 200 MG TABLET. PO (09:09)
[2017-09-09] MEDS: FERROUS SULFATE 325 MG TABLET. PO ×2 (11:43→17:15)
[2017-09-09] MEDS: ASCORBIC ACID 500 MG TABLET PO ×2 (11:43→21:00)
[2017-09-09] MEDS: CEFPODOXIME PROXETIL 100 MG TABLET. PO (17:15)
[2017-09-09] MEDS: DONEPEZIL HCL 5 MG TABLET. PO (21:00)
[2017-09-10] MEDS: FERROUS SULFATE 325 MG TABLET. PO ×2 (08:52→17:24)
[2017-09-10] MEDS: SENNOSIDES/DOCUSATE 8.6/50MG TABLET. PO (08:52)
[2017-09-10] MEDS: LACTOBACILLUS RHAMNOSUS GG 1 CAPSULE. PO ×2 (08:53→21:30)
[2017-09-10] MEDS: ASCORBIC ACID 500 MG TABLET PO ×2 (08:53→21:31)
[2017-09-10] MEDS: CEFPODOXIME PROXETIL 100 MG TABLET. PO ×2 (08:53→21:31)
[2017-09-10] MEDS: PANTOPRAZOLE 40 MG TABLET.DR. PO (08:53)
[2017-09-10] MEDS: PHENAZOPYRIDINE 200 MG TABLET. PO (08:53)
[2017-09-10] MEDS: ACETAMINOPHEN 325 MG TABLET. PO ×2 (08:59→21:31)
[2017-09-10] MEDS: TAMSULOSIN 0.4 MG CAP.ER.24H. PO (12:08)
[2017-09-10] MEDS: DONEPEZIL HCL 5 MG TABLET. PO (21:31)
[2017-09-11] MEDS: PHENAZOPYRIDINE 200 MG TABLET. PO (09:01)
[2017-09-11] MEDS: TAMSULOSIN 0.4 MG CAP.ER.24H. PO (09:02)
[2017-09-11] MEDS: FERROUS SULFATE 325 MG TABLET. PO (09:02)
[2017-09-11] MEDS: ASCORBIC ACID 500 MG TABLET PO ×2 (09:02→21:35)
[2017-09-11] MEDS: CEFPODOXIME PROXETIL 100 MG TABLET. PO ×2 (09:02→21:35)
[2017-09-11] MEDS: ACETAMINOPHEN 325 MG TABLET. PO ×2 (09:02→21:35)
[2017-09-11] MEDS: LACTOBACILLUS RHAMNOSUS GG 1 CAPSULE. PO ×2 (09:02→21:35)
[2017-09-11] MEDS: PANTOPRAZOLE 40 MG TABLET.DR. PO (09:02)
[2017-09-11] MEDS: DONEPEZIL HCL 5 MG TABLET. PO (21:35)
[2017-09-12 08:42] LABS: HEMATOCRIT 32.7 % (39.0-53.0); HEMOGLOBIN 10.2 g/dL (13.0-17.5); MEAN CORPUSCULAR HEMOGLOBIN 25 pg (25-35); MEAN CORPUSCULAR HGB CONC 31 g/dL (31-37); MEAN CORPUSCULAR VOLUME 81 fL (79-100); PLATELET COUNT 239 x10^3/uL (140-400); RED BLOOD COUNT 4.06 x10^6/uL (4.30-5.70); RED CELL DISTRIBUTION WIDTH 17.3 % (11.5-14.5); WHITE BLOOD COUNT 3.5 x10^3/uL (4.0-11.0)
[2017-09-12] MEDS: ACETAMINOPHEN 325 MG TABLET. PO ×2 (09:35→21:05)
[2017-09-12] MEDS: CEFPODOXIME PROXETIL 100 MG TABLET. PO ×2 (09:35→21:05)
[2017-09-12] MEDS: TAMSULOSIN 0.4 MG CAP.ER.24H. PO (09:35)
[2017-09-12] MEDS: PANTOPRAZOLE 40 MG TABLET.DR. PO (09:35)
[2017-09-12] MEDS: FERROUS SULFATE 325 MG TABLET. PO (09:36)
[2017-09-12] MEDS: ASCORBIC ACID 500 MG TABLET PO ×2 (09:36→21:05)
[2017-09-12] MEDS: LACTOBACILLUS RHAMNOSUS GG 1 CAPSULE. PO ×2 (12:29→21:05)
[2017-09-12] MEDS: DONEPEZIL HCL 5 MG TABLET. PO (21:04)
[2017-09-13] MEDS: PANTOPRAZOLE 40 MG TABLET.DR. PO (07:10)
[2017-09-13] MEDS: CEFPODOXIME PROXETIL 100 MG TABLET. PO (08:31)
[2017-09-13] MEDS: ACETAMINOPHEN 325 MG TABLET. PO (08:32)
[2017-09-13] MEDS: FERROUS SULFATE 325 MG TABLET. PO (08:33)
[2017-09-13] MEDS: TAMSULOSIN 0.4 MG CAP.ER.24H. PO (08:33)
[2017-09-13] MEDS: ASCORBIC ACID 500 MG TABLET PO (08:34)
[2017-09-13] MEDS: LACTOBACILLUS RHAMNOSUS GG 1 CAPSULE. PO (08:35)
== END 2017-09-13 16:50 | disposition home health service (06) | DRG 86 ==
LOC: ER 23:59 → 1 WEST ICU 09-07 02:58 → 4 NORTH 09-07 11:41
DX: S06.370A Contusion, laceration, and hemorrhage of cerebellum without loss of consciousness, initial encounter (principal); N39.0 Urinary tract infection, site not specified; G91.9 Hydrocephalus, unspecified; D64.9 Anemia, unspecified; E78.00 Pure hypercholesterolemia, unspecified; F02.80 Dementia in other diseases classified elsewhere, unspecified severity, without behavioral disturbance, psychotic disturbance, mood disturbance, and anxiety; G30.9 Alzheimer's disease, unspecified; N32.89 Other specified disorders of bladder; N40.0 Benign prostatic hyperplasia without lower urinary tract symptoms; R29.6 Repeated falls; W19.XXXA Unspecified fall, initial encounter; M51.36 Other intervertebral disc degeneration, lumbar region; M51.37 Other intervertebral disc degeneration, lumbosacral region; G62.9 Polyneuropathy, unspecified; G89.29 Other chronic pain; B96.20 Unspecified Escherichia coli [E. coli] as the cause of diseases classified elsewhere; Z98.1 Arthrodesis status; Y93.89 Activity, other specified; Y92.89 Other specified places as the place of occurrence of the external cause; Y99.8 Other external cause status; Z91.041 Radiographic dye allergy status; C44.619 Basal cell carcinoma of skin of left upper limb, including shoulder
CPT/HCPCS: 36415; 70450; 71045; 72100; 73565; 80053; 81001; 83605; 84145; 84484; 85007; 85025; 85027; 85610; 87040; 87086; 87186; 87641; 93005; 97116-GP; 97161-GP; 97165-GO; 97530-GO; 97530-GP; 97535-GO; J0690; J0696; J3490; J7030

== ENCOUNTER → 2017-11-12 | Outpatient (CLI) | payer OTHER ==
[2017-09-13 15:00] VITALS: BP 138/66
[~2017-11-12] MED LIST changes: +DONE5TAB7 PO; +OMEP40CA5 PO; +OXYB5SYR2 PO; +POLY255P PO; -REGADENOSON 0.4 MG/5 ML DISP.SYRIN. IV ONE; +SENN-37 PO; +SIMV40TA3 PO
--- NOTE | 2017-11-12 11:56 | RAD ---
CT HEAD WITHOUT CONTRAST 11/12/2017 10:37 AM Indication: CEREBELLAR HEMORRHAGE
PREVIOUS 09/07/17 Comparison: CT head without contrast September 07, 2017 Procedure: Multidetector CT imaging of the head was performed without the administration of contrast. Findings: Stable appearance of the 8mm hypertense lesion which appears to be within the superior right cerebellum versus arising from the right tentorium. Hemorrhage is unlikely given stability. Dystrophic calcification versus a calcified mass remains possible. Calcified aneurysm is not completely excluded. Extensive periventricular deep white matter hypoattenuation which is nonspecific most likely reflects chronic small vessel disease is unchanged. No acute mass effect or midline shift is identified. The ventricles and basilar cisterns are stable in configuration. No new abnormal extra-axial fluid collection is identified. No acute osseous changes are identified in the interim. IMPRESSION: Stable 8 mm hyperdense focus noted within the superior right cerebellum or along the tentorium. Differential considerations include partially calcified mass such as meningioma., Dystrophic calcification, versus less likely partially calcified aneurysm. Recommend further imaging with contrast-enhanced MRI.. CT DOSING PQRS STATEMENT: One or more of the following individualized dose reduction techniques were utilized for this examination: 1. Automated exposure control 2. Adjustment of the mA and/or kV according to patient size 3. Use of iterative reconstruction technique Electronically signed by: Nabil Tierney MD (11/12/2017 11:53 AM) [id number]
== END | disposition home or self-care (01) ==
LOC: CT 10:27
PROVIDERS: ATTEND Neurological Surgery
DX: D32.0 Benign neoplasm of cerebral meninges (principal); I10 Essential (primary) hypertension; E78.00 Pure hypercholesterolemia, unspecified; K21.9 Gastro-esophageal reflux disease without esophagitis; Z86.2 Personal history of diseases of the blood and blood-forming organs and certain disorders involving the immune mechanism
CPT/HCPCS: 70450

== ENCOUNTER → 2017-12-02 | Outpatient (CLI) | payer OTHER ==
[2017-09-13 15:00] VITALS: BP 138/66
[~2017-12-02] MED LIST changes: +GADOBUTROL 7.5 MMOL/7.5 ML VIAL IV ONE
--- NOTE | 2017-12-02 14:14 | RAD ---
MRI of the Brain without and with Contrast 12/02/2017 Clinical History: Tentorial mass seen on a recent CT scan which is felt to most likely represent a meningioma. Technique: Unenhanced T1-weighted sagittal and axial and FLAIR, T2-weighted, gradient echo and diffusion-weighted axial images of the brain were obtained. After the intravenous administration of 7.5 cc of Gadavist, enhanced T1-weighted axial, sagittal and coronal images of the brain were obtained. Findings: Comparison is made to the patient's CT scan of the head dated 11/12/2017. There is generalized parenchymal atrophy. Patchy, confluent and multiple focal areas of abnormally increased signal intensity are seen within the periventricular and subcortical white matter of both cerebral hemispheres, along with the cerebellum and ab on the FLAIR and T2-weighted images consistent with areas of fairly extensive small vessel ischemic disease. A 1 cm homogeneously enhancing mass is seen projecting inferiorly from the right aspect of the tentorium. This is consistent with a meningioma. It corresponds to the partially calcified mass seen on the patient's CT scan. There is no significant mass effect. No additional area of abnormal contrast enhancement is seen. No acute parenchymal abnormality is seen. No extra-axial fluid collection is seen. There is no MRI evidence of acute ischemia/infarction. Mild to moderate mucosal thickening in seen scattered throughout the paranasal sinuses. There are small bilateral mastoid effusions, left greater than right.. Normal flow voids are seen within the major vascular structures surrounding the brain parenchyma. Impression: 1. 1 cm meningioma is seen projecting inferiorly from the right aspect of the tentorium. This corresponds to the abnormality seen on the patient's recent CT scan of the head. There is no significant associated mass effect. 2. No acute parenchymal abnormality is seen. Electronically signed by: Harjeet Sherman MD (12/02/2017 2:11 PM) [id number]
== END | disposition home or self-care (01) ==
LOC: MRI 10:17
PROVIDERS: ATTEND Neurological Surgery
DX: D32.0 Benign neoplasm of cerebral meninges (principal); E78.5 Hyperlipidemia, unspecified; E78.00 Pure hypercholesterolemia, unspecified; I10 Essential (primary) hypertension; K21.9 Gastro-esophageal reflux disease without esophagitis; Z86.2 Personal history of diseases of the blood and blood-forming organs and certain disorders involving the immune mechanism
CPT/HCPCS: 70553; A9585

== ENCOUNTER 2018-05-23 12:58 | Inpatient (IN) | payer OTHER ==
[~2018-05-23] VITALS: Ht 177.8 cm; Wt 78.0 kg
[2018-05-23] VITALS (9 sets, daily range): BP systolic 121–134; BP diastolic 59–80
[~2018-05-23 12:58] MED LIST changes: -GADOBUTROL 7.5 MMOL/7.5 ML VIAL IV ONE; -HYDR-2758 PO; +HYDR-2761 PO; -POLY255P PO; +POLY255P11 PO
--- NOTE | 2018-05-23 13:50 | NUR ---
Pt arrived to unit per wheelchair. Initial orders received by Dr Farmer. Pt admitted to room 650.
[2018-05-23] MEDS ORDERED: diphenhydrAMINE HCL 25 MG CAPSULE PO PRN ×2 (14:30→19:15)
[2018-05-23] MEDS ORDERED: ACETAMINOPHEN 325 MG TABLET. PO PRN ×2 (14:30→19:15)
[2018-05-23] MEDS ORDERED: diphenhydrAMINE ORAL ELIXIR 12.5 MG/5 ML ML PO PRN ×2 (14:30→19:15)
[2018-05-23] MEDS ORDERED: PANT20TA2 PO (14:44)
[2018-05-23] MEDS ORDERED: DONE5TAB56 PO (14:44)
--- NOTE | 2018-05-23 14:47 | HP ---
ADMIT DATE: 05/23/2018 CHIEF COMPLAINT: Weakness and shortness of breath. HISTORY OF PRESENT ILLNESS: An 82-year-old white male with a prior history of dementia and undiagnosed GI bleeding in the past, has been scoped and found to have some duodenitis, but was told he had "small bowel bleeding" in the past. He has been taking iron tablets, but increasing symptoms led to a CBC which showed his hemoglobin was 7.5. He is admitted for transfusions and further evaluation. He was in [place] about 3-4 months ago, his hemoglobin was around 9 despite taking iron, but he had epistaxis at that time. 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 It is not clear when the last endoscopy was, but it may have been in 2013. He has had prior cardiac tests, which have all been unremarkable, the most about 2 years ago. PAST HISTORY: Well documented in the old record. MEDICATIONS: He takes omeprazole daily as well as Aricept and Flomax. He takes no aspirin or aspirin products. ALLERGIES: He has no known drug allergies. SOCIAL HISTORY: , inactive, nondrinker. FAMILY HISTORY: Unremarkable. REVIEW OF SYSTEMS: No other specific complaints. OBJECTIVE: ENT: Mild pallor, otherwise unremarkable. NECK: No masses, nodes or bruits. LUNGS: Clear. CARDIOVASCULAR: Grade 3 systolic murmur across the precordium. No irregular beating or otherwise noted. ABDOMEN: Soft, benign and nontender. RECTAL: Showed heme-negative stool. No masses were felt. EXTREMITIES: Nail pallor, no edema. Good pedal pulses. NEUROLOGIC: Physiologic except for very poor hearing and degree of cognitive impairment. ASSESSMENT: 1. Progressive microcytic anemia, etiology in the past multiple, but may be small bowel angiomas. 2. Chest pain, shortness of breath and exertional dyspnea likely secondary to anemia. 3. Alzheimer's dementia. 4. Benign prostatic hypertrophy. PLAN: Admit for transfusions, serial hemograms, GI consultation. He is a DNR after discussion with he and his . HERI LOPEZ MD DR: ROBY/hoang JOB#: [id number] / [id number]
--- NOTE | 2018-05-23 15:36 | PDOC2 ---
GI CONSULT Reason For Consult: Anemia HPI: HPI: Pleasant 82 y/o male w/ h/o dementia directly admitted. H/o weakness and SOA, outpt Hgb was 7.5. For comparison, was 9-11 range in 2018. 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 He takes omeprazole and Gaviscon for GERD. Was on iron in the past and tells me "I've been taking it again for the past couple days." Denies dysphagia, n/v, hematemesis, abd pain, hematochezia, melena, diarrhea, change in appetite ("my can't make enough food!"), or weight loss. No stools in a couple days so feels "full." Reviewed w/ our office - EGD and colonoscopy w/ Dr. Maciel in 2013 fro anemia that showed varices (banded), normal GE junction (Christian's on biopsy), gastric polyp, normal duodenum, and colon polyp (biopsy showed vegetable material). Denies GB, liver, or pancreas history. "My gives me a whole handful of pills!" PMH: PMH: per chart - dementia, OA, BPH, skin cancer, nephrolithiasis, HLD, pneumonia, seizure cervical fusion, ventral hernia repair, left knee surgery, bilateral elbox surgery, vasectomy, cataract removal FH: Family History: No pertinent hx Social History: ALCOHOL: none Drugs: None ROS: GEN: Denies fevers, chills, sweats HEENT: Denies blurred vision, sore throat CV: Denies chest pain RESP: +SOA GI: Per HPI : Denies hematuria, dysuria ENDO: Denies weight changes NEURO: Denies confusion, dizziness MSK: +weakness SKIN: Denies jaundice, pruritus Vitals: Vitals: Vital Signs Date Time Temp Pulse Resp B/P (MAP) Pulse Ox O2 Delivery O2 Flow Rate FiO2 05/23/18 15:00 98.1 77 18 125/72 (89) 96 98.1 Allergies: Coded Allergies: iodine (Verified Allergy, Intermediate, 04/14/16) PE: GEN: NAD HEENT: Atraumatic, PERRL LUNGS: CTAB HEART: RRR ABD: NABS, S/ND/NT EXTREMITY: No edema SKIN: No rashes, no jaundice NEURO/PSYCH: very pleasant and talkative, probably forgetful A/P: A/P: Weakness, SOA, dementia Anemia -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 Check anemia parameters. Continue PPI and iron, add Miralax. Check abd US and KUB. Okay to eat per GI. CARLOS PRAKASH May 23, 2018 15:36
[2018-05-23 15:47] LABS: BASO % 1 % (0-3); EOS % 1 % (0-3); HEMATOCRIT 22.8 % (39.0-53.0); LYMPH # 0.9 x10^3/uL (1.0-4.8); LYMPH % 34 % (24-48); MEAN CORPUSCULAR HEMOGLOBIN 24 pg (25-35); MEAN CORPUSCULAR HGB CONC 31 g/dL (31-37); MEAN CORPUSCULAR VOLUME 79 fL (79-100); MONO # 0.3 x10^3/uL (0.0-1.1); MONO % 9 % (0-9); NEUT # 1.5 x10^3uL (1.8-7.7); NEUT % 56 % (31-73); PLATELET COUNT 175 x10^3/uL (140-400); RED BLOOD COUNT 2.89 x10^6/uL (4.30-5.70); RED CELL DISTRIBUTION WIDTH 17.7 % (11.5-14.5); WHITE BLOOD COUNT 2.7 x10^3/uL (4.0-11.0)
[2018-05-23 15:56] LABS: CALCIUM 8.4 mg/dL (8.5-10.1); CREATININE 0.8 mg/dL (0.7-1.3); GFR 92.1; POTASSIUM 3.8 mmol/L (3.5-5.1); PROTHROMBIN TIME PATIENT 14.5 SEC (11.7-14.0)
--- NOTE | 2018-05-23 16:00 | NUR ---
Received call from Jermaine in the lab with a critical Hbg of 7.0. Dr Farmer notified and will plan to administer 2u PRBC per orders.
[2018-05-23 16:04] LABS: ALBUMIN 3.5 g/dL (3.4-5.0); TOTAL BILIRUBIN 0.3 mg/dL (0.2-1.0); TOTAL PROTEIN 7.1 g/dL (6.4-8.2)
--- NOTE | 2018-05-23 16:54 | RAD ---
JOHN, 05/23/2018: HISTORY: Esophageal varices, possible hepatic cirrhosis There are radiopacities compatible with surgical clips projected over the prostate region. There is moderate aortoiliac calcific plaquing. There is gas and stool scattered throughout the colon in a nonspecific pattern. There is no evidence organomegaly. Moderate degenerative changes are present in the lumbar spine. IMPRESSION: No acute abdominal abnormality is detected. Electronically signed by: Edilson Hemphill MD (05/23/2018 4:51 PM) [facility]
[2018-05-23] MEDS: PANTOPRAZOLE 40 MG TABLET.DR. PO SCH (18:19)
[2018-05-23] MEDS: FERROUS SULFATE ORAL 300 MG/5 ML SOLUTION. PO SCH (18:19)
[2018-05-23] MEDS: POLYETHYLENE GLYCOL 3350 17 GM PACKET. PO SCH (18:19)
--- NOTE | 2018-05-23 21:13 | NUR ---
Paged Dr Farmer for clarification of transfusion order. Only transfuse one unit PRBCs tonight and await H&H in a.m. Will continue with plan of care.
[2018-05-23] MEDS: DONEPEZIL HCL 5 MG TABLET. PO SCH (21:55)
[2018-05-23] MEDS: TAMSULOSIN 0.4 MG CAP.ER.24H. PO SCH (21:55)
[2018-05-24] VITALS (8 sets, daily range): BP systolic 121–188; BP diastolic 59–109
[2018-05-24 05:42] LABS: HEMATOCRIT 26.5 % (39.0-53.0); HEMOGLOBIN 8.3 g/dL (13.0-17.5); RED BLOOD COUNT 3.27 x10^6/uL (4.30-5.70); RED CELL DISTRIBUTION WIDTH 18.1 % (11.5-14.5); WHITE BLOOD COUNT 2.6 x10^3/uL (4.0-11.0)
[2018-05-24] MEDS: POLYETHYLENE GLYCOL 3350 17 GM PACKET. PO SCH (08:35)
[2018-05-24] MEDS: FERROUS SULFATE ORAL 300 MG/5 ML SOLUTION. PO SCH ×2 (08:35→18:13)
[2018-05-24] MEDS: PANTOPRAZOLE 40 MG TABLET.DR. PO SCH (08:35)
--- NOTE | 2018-05-24 11:00 | PDOC ---
Provider Note Provider Note alert, feels ok- hb up 8.3, iron low/tibc up- will give another 1 u prbc, then some venofer- as he had ahd angina lately- d/w , maybe dc in am HERI LOPEZ MD May 24, 2018 11:00
[2018-05-24] MEDS ORDERED: IRON SUCROSE COMPLEX 500 MG in IV NORMAL SALINE 250ML 250 ML IV ONE (13:00)
--- NOTE | 2018-05-24 14:43 | PDOC ---
Subjective: Subjective: Hgb up to 8.3. Receiving iron IV now Objective: Vital Signs: Vital Signs Date Time Temp Pulse Resp B/P (MAP) Pulse Ox O2 Delivery O2 Flow Rate FiO2 05/24/18 10:37 97.9 72 18 121/61 (81) 95 Room Air 97.9 Labs: Laboratory Tests Test 05/23/18 15:17 05/24/18 04:00 White Blood Count 2.7 x10^3/uL (4.0-11.0) 2.6 x10^3/uL (4.0-11.0) Red Blood Count 2.89 x10^6/uL (4.30-5.70) 3.27 x10^6/uL (4.30-5.70) Hemoglobin 7.0 g/dL (13.0-17.5) 8.3 g/dL (13.0-17.5) Hematocrit 22.8 % (39.0-53.0) 26.5 % (39.0-53.0) Mean Corpuscular Volume 79 fL (79-100) 81 fL (79-100) Mean Corpuscular Hemoglobin 24 pg (25-35) 25 pg (25-35) Mean Corpuscular Hemoglobin Concent 31 g/dL (31-37) 31 g/dL (31-37) Red Cell Distribution Width 17.7 % (11.5-14.5) 18.1 % (11.5-14.5) Platelet Count 175 x10^3/uL (140-400) 168 x10^3/uL (140-400) Neutrophils (%) (Auto) 56 % (31-73) Lymphocytes (%) (Auto) 34 % (24-48) Monocytes (%) (Auto) 9 % (0-9) Eosinophils (%) (Auto) 1 % (0-3) Basophils (%) (Auto) 1 % (0-3) Neutrophils # (Auto) 1.5 x10^3uL (1.8-7.7) Lymphocytes # (Auto) 0.9 x10^3/uL (1.0-4.8) Monocytes # (Auto) 0.3 x10^3/uL (0.0-1.1) Eosinophils # (Auto) 0.0 x10^3/uL (0.0-0.7) Basophils # (Auto) 0.0 x10^3/uL (0.0-0.2) Reticulocyte Count (auto) 2.3 % (0.5-2.5) Prothrombin Time 14.5 SEC (11.7-14.0) Prothromb Time International Ratio 1.2 (0.8-1.1) Sodium Level 140 mmol/L (136-145) Potassium Level 3.8 mmol/L (3.5-5.1) Chloride Level 104 mmol/L (98-107) Carbon Dioxide Level 24 mmol/L (21-32) Anion Gap 12 (6-14) Blood Urea Nitrogen 13 mg/dL (8-26) Creatinine 0.8 mg/dL (0.7-1.3) Estimated GFR (Cockcroft-Gault) 92.1 BUN/Creatinine Ratio 16 (6-20) Glucose Level 97 mg/dL (70-99) Calcium Level 8.4 mg/dL (8.5-10.1) Iron Level 9 ug/dL (65-175) Total Iron Binding Capacity 376 ug/dL (250-450) Iron Saturation 2 % (15-34) Total Bilirubin 0.3 mg/dL (0.2-1.0) Aspartate Amino Transf (AST/SGOT) 14 U/L (15-37) Alanine Aminotransferase (ALT/SGPT) 20 U/L (16-63) Alkaline Phosphatase 62 U/L (46-116) Total Protein 7.1 g/dL (6.4-8.2) Albumin 3.5 g/dL (3.4-5.0) Albumin/Globulin Ratio 1.0 (1.0-1.7) Physical Exam: Physical Exam: PE: GEN: NAD HEENT: Atraumatic, PERRL LUNGS: CTAB HEART: RRR ABD: NABS, S/ND/NT EXTREMITY: No edema SKIN: No rashes, no jaundice NEURO/PSYCH: very pleasant and talkative, probably forgetful Assessment & Plan: Assessment : A/P: A/P: Weakness, SOA, dementia Anemia -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 KUB normal CRC screen - UTD Plan: Check anemia parameters. Continue PPI and iron, add Miralax. Check abd US result Okay to eat per GI. MARIBEL HEAD MD May 24, 2018 14:43
--- NOTE | 2018-05-24 19:47 | NUR ---
Dr Farmer placed an order for transfusion of another unit of RBCs this am. Order was not complete, so I called the blood bank and spoke with Oralia to ask what other orders were needed for me to transfuse the unit. Pharmacy and blood bank both said that they were confused by the order since patient did not qualify for the transfusion per protocol and I was to clarify with Dr Farmer if he meant to transfuse a unit, or have a unit ready to transfuse if the pt qualified. I did verify with Dr Farmer that his intent was to go ahead and transfuse this am since the pt had chest pain. I asked the pt how bad his chest pain was since he had not mentioned it to me earlier. The Pt said, "oh I had burning chest pain when I came in, but I have not had any since and none now." Oralia in blood bank said that she would have to get a pathologist to override protocol exception, but then conferred with her cage supervisor and the decision was made to give his IV iron, and then recheck his hemoglobin at 1800. Depending on those results, we could either give the unit per protocol, or if he still did not qualify, blood bank personnel would call the pathologist to get permission to over-ride protocol. Blood was being drawn at shift change, and I passed on this report to Marie BAUMAN, charge nurse.
[2018-05-24 20:47] LABS: HEMATOCRIT 24.5 % (39.0-53.0); HEMOGLOBIN 7.5 g/dL (13.0-17.5)
--- NOTE | 2018-05-24 21:00 | NUR ---
Pt's hgb 7.5 at 1999. Spoke with Danni in blood bank who stated that protocol could be overridden and one unit of blood should be administered because of the significant drop since this morning, despite pt not currently having chest pain. Will transfuse one unit PRBCs.
[2018-05-24] MEDS: TAMSULOSIN 0.4 MG CAP.ER.24H. PO SCH (21:50)
[2018-05-24] MEDS: DONEPEZIL HCL 5 MG TABLET. PO SCH (21:50)
[2018-05-25 00:04] VITALS: BP 168/84
[2018-05-25 00:40] VITALS: BP 168/84
[2018-05-25 01:40] VITALS: BP 115/91
[2018-05-25 03:20] VITALS: BP 115/91
[2018-05-25 08:08] VITALS: BP 154/85
--- NOTE | 2018-05-25 08:17 | RAD ---
Examination: Ultrasound abdomen limited HISTORY: History of cirrhosis, esophageal varices COMPARISON: None available. Findings: The pancreas is not well-visualized due to bowel gas. The gallbladder is mildly distended. Multiple gallstones identified within the gallbladder. There is increased echogenicity noted in the liver. The right kidney measures 12.3 cm in length. The right kidney appears somewhat echogenic. The common bile duct measures 4 mm in transverse dimension. 8.2 mm cystic structure identified in the right lobe of the liver. IMPRESSION: 1. Cholelithiasis. 2. 8 mm cystic structure identified in the right lobe of the liver probably cyst. 3. Echogenic appearing right kidney could be due to medical renal disease. 4. Increased echogenicity noted throughout the liver likely mild hepatic steatosis. Electronically signed by: Miguel Harris MD (05/25/2018 8:14 AM) [facility]
[2018-05-25 08:57] LABS: HEMOGLOBIN 10.3 g/dL (13.0-17.5); RED BLOOD COUNT 4.03 x10^6/uL (4.30-5.70); RED CELL DISTRIBUTION WIDTH 18.6 % (11.5-14.5); WHITE BLOOD COUNT 3.7 x10^3/uL (4.0-11.0)
--- NOTE | 2018-05-25 09:18 | DISCH ---
DISCHARGE INSTRUCTIONS Condition on Discharge Condition on Discharge: Stable Activity After Discharge Activity Instructions for Disc: Activity as tolerated Driving Instructions after Dis: Do not drive today Weight Bearing Status after Di: As tolerated Diet after Discharge Diet after Discharge: Regular Diet Texture: Regular Follow-Up Follow up with: dr russell 1 w Treatment/Equipment after DC Adaptive Equipment Issued: None HERI LOPEZ MD May 25, 2018 09:18
--- NOTE | 2018-05-25 09:22 | PDOC ---
Provider Note Provider Note [id number] HERI LOPEZ MD May 25, 2018 09:22
[2018-05-25] MEDS: POLYETHYLENE GLYCOL 3350 17 GM PACKET. PO SCH (09:47)
[2018-05-25] MEDS: PANTOPRAZOLE 40 MG TABLET.DR. PO SCH (09:47)
[2018-05-25] MEDS: FERROUS SULFATE ORAL 300 MG/5 ML SOLUTION. PO SCH (09:47)
--- NOTE | 2018-05-25 09:53 | DS ---
DATE OF DISCHARGE: 05/25/2018 HOSPITAL SUMMARY: An 82-year-old white male with known prior iron deficiency anemia, presumably of etiology of small bowel angiodysplasia. He had had prior negative GI workup in the past, although about 5 years ago. He has had increasing chest pain, shortness of breath and fatigue and hemoglobin as an outpatient was noted to be 7. Hemoglobin was 7.0 on admission, MCV 79. Platelets and white count normal except white count borderline low at 2700. Hemoglobin was 7.5 after 1 unit and 10.3 after 2 units and 500 mg of IV iron. INR and chemistry profile were unremarkable. Iron was low at 9. TIBC high at 376, and saturation was then low at 2%. After the 2 units and IV iron, he is feeling better and is comfortable to be followed as an outpatient at this point. GI consultation was obtained more for formality and no aggressive intervention was noted as the patient did not appear to be bleeding and further GI workup did not appear to be productive at this time. FINAL DIAGNOSES: 1. Recurrent iron deficiency anemia, presumably secondary to small intestinal angiodysplasia. 2. Angina pectoris secondary to anemia and demand ischemia. OPERATIONS, PROCEDURES, COMPLICATIONS: None. CONSULTATIONS: Dr. Muñoz's group. DISPOSITION: Continue iron b.i.d. No aspirin, ibuprofen or other GI irritants. Continues on omeprazole at home for GI protection. Rest of meds remain the same. Office followup in 1 week with serial hemoglobins just to follow progress. He may need further IV iron in the future or perhaps even transfusions. He remains a DNR patient. HERI LOPEZ MD DR: ROBY/hoang JOB#: [id number] / [id number]
--- NOTE | 2018-05-25 14:25 | NUR ---
Discharge teaching competed. IV site discontinued without difficulty. Pt/spouse state that pt has all of his belongings and understand his home medications. He was escorted out by staff via wheelchair with spouse. Discharged to home
== END 2018-05-25 13:10 | disposition home or self-care (01) | DRG 394 ==
LOC: 6 SOUTH 13:22
PROVIDERS: ADMIT Family Medicine; ATTEND Family Medicine
PROC: 30233N1 Transfusion of Nonautologous Red Blood Cells into Peripheral Vein, Percutaneous Approach (ICD-10-PCS; principal; 2018-05-23)
DX: K55.20 Angiodysplasia of colon without hemorrhage (principal); I24.8 Other forms of acute ischemic heart disease; D50.9 Iron deficiency anemia, unspecified; F02.80 Dementia in other diseases classified elsewhere, unspecified severity, without behavioral disturbance, psychotic disturbance, mood disturbance, and anxiety; G30.9 Alzheimer's disease, unspecified; N40.0 Benign prostatic hyperplasia without lower urinary tract symptoms; K21.9 Gastro-esophageal reflux disease without esophagitis; M19.90 Unspecified osteoarthritis, unspecified site; E78.5 Hyperlipidemia, unspecified; Z85.828 Personal history of other malignant neoplasm of skin; Z86.010 Personal history of colon polyps; Z98.52 Vasectomy status; Z98.1 Arthrodesis status; Z91.041 Radiographic dye allergy status; Z87.442 Personal history of urinary calculi
CPT/HCPCS: 36415; 74018; 76705; 80053; 82607; 83540; 83550; 85014; 85018; 85025; 85027; 85045; 85610; 86850; 86900; 86901; 86920; J1756; J7050; P9016; J7030

== ENCOUNTER → 2018-06-12 | Outpatient (CLI) | payer OTHER ==
[2018-05-25 08:08] VITALS: BP 154/85
[~2018-06-12] MED LIST changes: +DONE5TAB56 PO; +GADOBUTROL 7.5 MMOL/7.5 ML VIAL IV ONE; +PANT20TA2 PO
--- NOTE | 2018-06-12 16:04 | RAD ---
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 Comparison: December 02, 2017 Findings: There is no evidence of recent infarct. There is no new intra-axial mass effect, midline shift, extra-axial fluid collection. There is again moderate to severe supratentorial atrophy. Mild T2 and FLAIR hyperintense abnormality of the ab is similar. There is again moderate to severe T2 and FLAIR hyperintense signal abnormality of the supratentorial parenchyma bilaterally not significantly changed. There are again suspected very small old lacunar infarcts of the bilateral gr radiata. There is again small extra-axial enhancing mass protruding inferior to the right tentorium about 0.8 cm transverse by 0.7 cm CC by 0.9 cm AP, not significantly changed. There is again complete opacification right maxillary sinus. There is minimal left maxillary sinus mucosal thickening and also medial mucous retention cyst now present. There is patchy mild ethmoid air cell mucosal thickening greater on the left. There has been lens surgery bilaterally. There is new mild fluid and thickening of the left mastoid air cells. There is preservation of the major arterial intracranial flow voids at the skull base. There is similar nonspecific heterogeneity of the marrow not expanded clivus. Impression: 1. There is no evidence of recent infarct. 2. There is stable small extra-axial enhancing mass protruding inferior to the right tentorium likely small meningioma. 3. There is again multifocal T2 and FLAIR hyperintense abnormality of the supratentorial parenchyma and to lesser degree of the ab, more likely due to chronic microvascular ischemic disease in a patient this age. 4. There is again supratentorial atrophy. 5. There is complete opacification of the right maxillary sinus, new minimal left maxillary sinus mucosal thickening and small mucous retention cyst. Electronically signed by: Eugene Hernandez MD (06/12/2018 4:01 PM) [facility] [id number]
== END | disposition home or self-care (01) ==
LOC: MRI 15:39
PROVIDERS: ATTEND Neurological Surgery
DX: G31.89 Other specified degenerative diseases of nervous system (principal); M27.40 Unspecified cyst of jaw; D32.9 Benign neoplasm of meninges, unspecified
CPT/HCPCS: 70553; A9585